=== PATIENT | female | born 1980 | race Caucasian/White ===

== ENCOUNTER 2024-07-30 01:40 | Day surgery (SDC) | payer OTHER, SELFPAY ==
[2024-07-25 08:08] VITALS: BMI 21.7
--- NOTE | 2024-07-25 08:14 | PC.NURSE ---
Report to the Outpatient Waiting Room, entrance under the green pavilion located off [facility], at time _0700_ on date _[id number]_. Planned Procedure Time: _0900_.? Time changes happen often and if your time is changed the preop area will call you the afternoon before. - You and your visitor will be asked to self-screen and do not enter if you have any COVID symptoms. Please call surgeon if you need to reschedule. - A mask is optional within the hospital at this time. Patients may have clear liquids (water, carbonated beverages, clear teas, apple juice) until 3 hours prior to surgery with a maximum of 20 ounces. - No food from midnight until time of surgery and no smoking Take only the following medications with a SIP of water on the morning of surgery: ___None___ DO NOT STOP ANY OF YOUR OTHER PRESCRIPTION MEDICATIONS PRIOR TO SURGERY EXCEPT THE FOLLOWING Medications to discontinue per physician __Magnesium____ Date to take last nijq__[id number]_ Please no make-up, nail albanian, hairspray, perfume, deodorant, or body powder the day of surgery.? No jewelry (including any body piercings) or valuables the day of surgery, leave them at home.? Please take a shower or bath the night before, or the morning of, surgery with an antibacterial soap.? Wear comfortable, loose fitting clothing.? - Jewelry must be removed prior to entering the operating room.? Rings and piercings that are not removed may be cut off. - The hospital will not accept responsibility for valuables.? - Please leave all valuables, including medications, at home the day of surgery. If you are going home after surgery, a licensed uke driver must drive you home.? - NO public transportation without another adult if you receive anesthesia. - We recommend that an adult stay with you for 24 hours following discharge. - We also recommend that you do not drive, make important decision, drink alcoholic beverages, or take any drugs that were not prescribed by your health care provider for at least 24 hours after your discharge time. Follow any additional instructions given to you from your surgeon. Telephone instructions given to ___Amy__and asked if any additional questions and then verbalized understanding. Patient advised to call surgeon office or pre surgery nurse liaison [phone] if any additional questions.
[2024-07-30] VITALS (8 sets, daily range): BP systolic 97–109; BP diastolic 44–67; PULSE 57–90; RESP 10–18; TEMP 36.4–36.9; O2SAT 99–100; BMI 21.3
[2024-07-30] MEDS: LACTATED RINGERS 1,000 ML 30 ML IV CONT (08:00)
[2024-07-30] MEDS: KETOROLAC 15 MG/ML VIAL (*BKC) IV PUSH (08:00)
[2024-07-30] MEDS: ACETAMINOPHEN 500 MG TABLET 1000 MG PO (08:00)
[2024-07-30 08:02] LABS: BEDSIDEPREGUCG Negative (Negative)
[2024-07-30 08:08] LABS: BEDSIDEPREGUCG Negative (Negative)
--- NOTE | 2024-07-30 08:15 | PM.IMHP ---
H&P: HPI History of Present Illness Date/Time: 07/30/24 08:15 Chief Complaint: Menorrhagia Narrative: 43-year-old female with severe menorrhagia. We have agreed to perform hysteroscopy D&C with endometrial ablation. The patient understands the details of the procedure. The procedure has been explained in detail. She understands the risks. She understands that injuries may occur that result in hospitalization, more surgery, and severe illness. She understands risk of hemorrhage and infection. She denies any chest pain or shortness of breath. She denies any nausea, vomiting, fever, chills. Review of Systems Review of Systems: All systems reviewed & are unremarkable except as noted in HPI and below Constitutional: Constitutional: Denies chills, Denies fatigue, Denies fever(s) and Denies weakness Eyes: Eyes: Denies blurry vision, Denies change in vision, Denies loss of peripheral vision, Denies loss of vision, Denies other visual disturbances and Denies eye pain ENT: Denies vertigo, Denies dizziness, Denies hearing loss, Denies mouth pain, Denies nasal obstruction, Denies neck mass and Denies neck pain Cardiovascular: Cardiovascular: Denies chest pain, Denies diaphoresis, Denies syncope, Denies leg edema and Denies dyspnea Respiratory: Respiratory: Denies chest congestion, Denies cough, Denies hemoptysis, Denies dyspnea and Denies wheezing Gastrointestinal: Gastrointestinal: Denies abdominal pain, Denies constipation, Denies diarrhea, Denies nausea and Denies vomiting Genitourinary: Genitourinary: Denies hematuria, Denies change in libido, Denies nocturia, Denies genital lesions, Denies flank pain and Denies urinary urgency Musculoskeletal: Musculoskeletal: Denies abnormal gait, Denies back pain, Denies myalgias, Denies arthralgias, Denies joint swelling, Denies muscle weakness and Denies neck pain Integumentary/Breasts: Skin/Breast: Denies swelling, Denies breast pain, Denies breast mass, Denies dry skin, Denies nipple discharge, Denies unusual bruising and Denies jaundice Neurologic: Denies Neuro-related abnormal movements, Denies Abnormal speech present, Denies abnormal gait, Denies behavioral changes, Denies confusion, Denies vertigo, Denies dizziness, Denies syncope, Denies loss of vision, Denies memory loss, Denies convulsions and Denies weakness Psychiatric: Psychiatric: Denies abnormal sleep pattern, Denies behavioral changes, Denies change in libido, Denies confusion, Denies depression, Denies anhedonia and Denies memory loss Endocrine: Endocrine: Reports no additional endocrine complaints, Denies change in libido and Denies fatigue Hematologic/Lymphatic: Hematologic/Lymphatic: Reports no additional hematologic/lymphatic complaints Allergic/Immunologic: Allergic/Immunologic: Reports no additional allergic/immunologic complaints and Denies wheezing PMFSH Social History Social History Smoking status: Never smoker Alcohol intake: current Drinks per week: 3 Living arrangements: with family Spiritual care concerns: No Meds Home Medications and Allergies Home Medications Medication Instructions Recorded Confirmed Type magnesium 200 mg tablet 400 mg PO DAILY 07/25/24 07/25/24 History spironolactone 100 mg tablet 100 mg PO DAILY 07/25/24 07/25/24 History Allergies Allergy/AdvReac Type Severity Reaction Status Date / Time No Known Allergies Allergy Unverified 07/25/24 08:06 Vital Signs Vital Signs - 24 hr 07/30/24 07:50 Temperature 98.5 F Pulse Rate 68 Blood Pressure 109/59 L Pulse Oximetry 100 Oxygen Delivery Room Air Exam Const: General: cooperative, healthy appearing, comfortable and no acute distress Orientation/consciousness: oriented to person, oriented to place and oriented to time HENMT: Head: normal to inspection Ears: external ears normal Face/Nose/Sinus: Normal external nose present and normal facial exam Face and sinus: normal facial exam Eyes: General: appearance normal, both eyes and all related structures Neck: Neck: normal visual inspection, trachea midline and supple Resp: Auscultation: clear to auscultation bilaterally, no crackles, no rales, no rhonchi and no wheezes Cardio: Rate: regular rate Rhythm: regular rhythm Heart sounds: no click, no murmurs and no rubs GI: GI Palp: No abdominal tenderness, No Soft to palpation, No Tenderness to palpation present (GI) and No Palpable mass present Auscultation: normal bowel sounds Skin: General skin exam: normal color and no rashes or lesions noted Neuro: General: oriented to person, oriented to place and oriented to time Extrem: General: normal to inspection, no joint enlargement, no clubbing, cyanosis or edema, no pedal edema and no calf tenderness Psych: Appearance: grossly normal Mental Status: mental status grossly normal Speech and movement: Normal speech and movement present Assessment and Plan Assessment and plan (1) Menorrhagia: Code(s): N92.0 - Excessive and frequent menstruation with regular cycle Status: Acute Assessment and Plan: 43-year-old female with severe menorrhagia. We have agreed to perform hysteroscopy D&C with endometrial ablation. she understands the risks, benefits, and alternatives. She has completed informed consent process and is ready to proceed.
--- NOTE | 2024-07-30 08:17 | WPDHPUPDATE1 ---
History and Physical Update Update Date/Time: 07/30/24 08:17 History and Physical has been reviewed, including an updated exam of the patient. There are NO changes in the patient's condition. Risks, benefits, and alternatives have been discussed and questions answered. Patient agrees to proceed with procedure.
--- NOTE | 2024-07-30 08:21 | WPDANESEPPF ---
Anes - Initial Pre Proc Eval Procedure: Operation Date: 07/30/24 09:00 Proposed Procedures p Hysteroscopy with Lia Endometrial Ablation, - Nate Johns MD s Laparoscopic Bilateral Salpingectomy - Nate Johns MD Date/Time: 07/30/24 08:21 Surgeon: Nate Johns MD Pre Op Diagnosis: menorrhagia Pre Op Diagnosis: menorrhagia Patient Data Age: 43 Gender: F Height: 1.55 m Weight: 51.2 kg Last Vital Signs Temp 36.9 C 07/30/24 07:50 Pulse 68 07/30/24 07:50 BP 109/59 L 07/30/24 07:50 Pulse Ox 100 07/30/24 07:50 O2 Del Method Room Air 07/30/24 07:50 Allergies Allergy/AdvReac Type Severity Reaction Status Date / Time No Known Allergies Allergy Unverified 07/25/24 08:06 Home Medications Medication Instructions Recorded Confirmed Type magnesium 200 mg tablet 400 mg PO DAILY 07/25/24 07/25/24 History spironolactone 100 mg tablet 100 mg PO DAILY 07/25/24 07/25/24 History Laboratory Tests 07/30/24 07/30/24 07:50 08:02 POC Urine HCG, Qual Negative Negative (Negative) (Negative) : patient denies HCG: negative Patient hx anesthesia problems: none Family hx anesthesia problems: none Results Review: All pre-operative results and documents have been reviewed as part of the pre-operative evaluation. FORMERLY [facility] Social History Social History Smoking status: Never smoker Alcohol intake: current Drinks per week: 3 Living arrangements: with family Spiritual care concerns: No Comments h/o hernia repair with PONV, h/o breast augmentation Anes - Eval Final PreProcedure Day of Procedure 07/30/24 08:21 Patient weight: thin Heart: regular rate and rhythm Lungs: clear to auscultation Airway: Mallampati scale class II Neurological: alert and oriented Last oral intake: >/= 8 hours ASA classification: I Emergent: no Anesthetic plan: proceed Anesthesia type and monitoring: general ETT and standard monitoring Results Review: All pre-operative results and documents have been reviewed as part of the pre-operative evaluation. Informed Consent: The patient's anesthetic plan and its attendant risks and benefits were discussed with the patient/family/POA. Questions were solicited and answers provided to the satisfaction of the patient/family/POA.
[2024-07-30] MEDS: SCOPOLAMINE 1 MG PATCH 1 PATCH TRANSDERM (08:33)
--- NOTE | 2024-07-30 09:22 | W.PM.PROC2 ---
Procedure Note - Detailed Date of Procedure 07/30/24 Pre-op Diagnosis menorrhagia Post-op Diagnosis Same Procedure Performed endometrial ablation with hysteroscopy d&c Surgeon Nate Johns MD Anesthesia MAC Indications Severe menorrhagia Findings Normal vulva vagina and cervix. Normal endometrium. Description of Procedure The patient was taken to the operating room. She was prepped and draped in the dorsal lithotomy position after induction of mac anesthesia. A speculum was placed in the vagina. Cervix grasped with a tenaculum. The cervix was dilated to about 1 cm. The hysteroscope was inserted. The above findings were noted. Endometrial curettage was performed with a medium-size curette. All surfaces of the endometrium were affected by the curettage. The specimens were collected and sent to pathology. Measurements were taken of the uterus and cervix. The uterine length was then entered into the hand piece of the Lia device. The device was inserted into the intrauterine cavity. The array of the device was expanded. The balloon cuff was inflated. A good seal was achieved. The energy and safety cycles were initiated and completed. The array was collapsed and the instrument was withdrawn after deflating the balloon cuff. Hysteroscope was reinserted. Above findings were noted. The hysteroscope was removed. The patient tolerated the procedure well. The speculum and tenaculum were removed. She was taken to recovery in stable condition. Sponge lap and needle counts were correct x2. Estimated Blood Loss 15 Pathology Yes Complications No immediate complications Condition Stable Disposition Same day
[2024-07-30] MEDS: ONDANSETRON INJ 4 MG/2 ML VIAL IV PUSH (10:58)
== END 2024-07-30 11:45 | disposition home or self-care (01) ==
PROVIDERS: PCP Family Medicine; Visit Provider Obstetrics & Gynecology
PROC: 0U5B8ZZ Destruction of Endometrium, Via Natural or Artificial Opening Endoscopic (ICD-10-PCS; CPT 58563; principal; 2024-07-30 09:00)
PROC: (CPT 49320; 2024-07-30 09:00)
DX: N83.8 Other noninflammatory disorders of ovary, fallopian tube and broad ligament (principal); G89.18 Other acute postprocedural pain
CPT/HCPCS: 58563; 88302; A9270; J1100; J1171; J1885; J2003; J2250; J2405; J2704; J7120

== ENCOUNTER 2025-08-04 00:35 | Day surgery (SDC) | payer OTHER, SELFPAY ==
[2025-07-23 10:46] VITALS: BMI 22.1
[2025-08-04 07:21] VITALS: BP 123/70; PULSE 96; RESP 18; TEMP 36.1; O2SAT 100
[2025-08-04] MEDS: LACTATED RINGERS 1,000 ML 150 ML IV CONT (07:32)
[2025-08-04] MEDS: ONDANSETRON INJ 4 MG/2 ML VIAL IV PUSH (08:13)
--- NOTE | 2025-08-04 08:37 | PM.IMHP ---
H&P: HPI History of Present Illness Date/Time: 08/04/25 08:37 Chief Complaint: screening for colorectal cancer Narrative: this is a 44-year-old woman who presents for her 1st colonoscopy. She denies any hematochezia or melena. She denies any family history of colon cancer. Review of Systems Review of Systems: All systems reviewed & are unremarkable except as noted in HPI and below Constitutional: Constitutional: Denies chills, Denies fever(s), Denies headache(s) and Denies weight loss Eyes: Eyes: Denies change in vision ENT: Denies dizziness, Denies headache(s), Denies neck mass and Denies throat swelling Cardiovascular: Cardiovascular: Denies chest pain, Denies lightheadedness and Denies dyspnea Respiratory: Respiratory: Denies cough, Denies dyspnea and Denies wheezing Gastrointestinal: Gastrointestinal: Denies abdominal pain, Denies change in bowel habits, Denies nausea and Denies vomiting Genitourinary: Genitourinary: Denies hematuria and Denies dysuria Musculoskeletal: Musculoskeletal: Reports as per HPI Integumentary/Breasts: Skin/Breast: Reports as per HPI Neurologic: Denies dizziness and Denies headache(s) Allergic/Immunologic: Allergic/Immunologic: Denies throat swelling and Denies wheezing FORMERLY [facility], [facility] Social History Social History Smoking status: Never smoker Alcohol intake: never Drinks per week: 3 Substance use: never Substance use type: does not use Living arrangements: with family Spiritual care concerns: No Meds Home Medications and Allergies Home Medications ?Medication ?Instructions ?Recorded ?Confirmed ?Type magnesium 200 mg tablet 400 mg PO DAILY 07/25/24 08/04/25 History spironolactone 100 mg tablet 100 mg PO DAILY 07/25/24 08/04/25 History oxycodone-acetaminophen 5 mg-325 1 tablet PO Q4H PRN pain #10 tabs 07/30/24 07/23/25 Rx mg tablet Allergies Allergy/AdvReac Type Severity Reaction Status Date / Time No Known Allergies Allergy Verified 08/04/25 07:18 Vital Signs Vital Signs - 24 hr 08/04/25 07:21 Temperature 97 F L Pulse Rate 96 Respiratory Rate 18 Blood Pressure 123/70 Pulse Oximetry 100 Oxygen Delivery Room Air Exam Const: General: no acute distress and alert Orientation/consciousness: patient oriented x3 HENMT: Head: normocephalic and atraumatic Ears: hearing grossly normal bilaterally Face/Nose/Sinus: Normal nares present Mouth: Yes Normal oral and palatal mucosa present Eyes: Periorbital: periorbital findings normal Sclera: sclerae normal EOM: EOMs intact bilaterally Neck: Neck: normal visual inspection, no lymphadenopathy and trachea midline Chest: Chest palpation & inspection: normal inspection of the chest Resp: Effort & Inspection: normal respiratory effort Auscultation: clear to auscultation bilaterally Cardio: Jugular venous distension: no JVD Rate: regular rate Rhythm: regular rhythm Heart sounds: S1 normal heart sound present and S2 normal heart sound present Peripheral pulses: Peripheral pulses 2+ throughout GI: Inspection: normal to inspection GI Palp: Yes Soft to palpation, No Tenderness to palpation present (GI), No Guarding due to palpation present (GI) and No Rebound tenderness present Percussion: Yes normal to percussion Auscultation: normal bowel sounds : General: Yes no CVA tenderness Back/Spine/Pelvis: Back: no CVA tenderness Neuro: General: patient oriented x3, no focal motor deficits and CN's II-XI intact bilaterally Cognition (Neuro): normal cognition Speech: normal speech Motor exam (neuro): 5/5 motor strength present throughout Extrem: General: capillary refill normal and no clubbing, cyanosis or edema Assessment and Plan Assessment and plan (1) Screening for colorectal cancer: Code(s): Z12.11 - Encounter for screening for malignant neoplasm of colon; Z12.12 - Encounter for screening for malignant neoplasm of rectum Status: Acute Assessment and Plan: I have recommended colonoscopy. I have discussed the procedure, risks, benefits, and alternatives. Questions were answered. Patient is agreeable to proceed.
--- NOTE | 2025-08-04 08:50 | WPDANESEPPF ---
Anes - Initial Pre Proc Eval Procedure: Operation Date: 08/04/25 08:30 Proposed Procedures p Screening Colonoscopy - Adebayo Encarnacion DO Date/Time: 08/04/25 08:50 Surgeon: Adebayo Encarnacion DO Pre Op Diagnosis: Neoplasm screening Patient Data Age: 44 Gender: F Height: 1.55 m Weight: 52 kg Last Vital Signs Temp 36.1 C L 08/04/25 07:21 Pulse 96 08/04/25 07:21 Resp 18 08/04/25 07:21 BP 123/70 08/04/25 07:21 Pulse Ox 100 08/04/25 07:21 O2 Del Method Room Air 08/04/25 07:21 Allergies Allergy/AdvReac Type Severity Reaction Status Date / Time No Known Allergies Allergy Verified 08/04/25 07:18 Home Medications ?Medication ?Instructions ?Recorded ?Confirmed ?Type magnesium 200 mg tablet 400 mg PO DAILY 07/25/24 08/04/25 History spironolactone 100 mg tablet 100 mg PO DAILY 07/25/24 08/04/25 History oxycodone-acetaminophen 5 mg-325 1 tablet PO Q4H PRN pain #10 tabs 07/30/24 07/23/25 Rx mg tablet Patient hx anesthesia problems: none Family hx anesthesia problems: none Results Review: All pre-operative results and documents have been reviewed as part of the pre-operative evaluation. FORMERLY [facility] Past Medical History Medical History (Updated 08/04/25 @ 08:50 by Tadeo Ybarra DO) Anemia Social History Social History Smoking status: Never smoker Alcohol intake: never Drinks per week: 3 Substance use: never Substance use type: does not use Living arrangements: with family Spiritual care concerns: No Anes - Eval Final PreProcedure Day of Procedure 08/04/25 08:50 Patient weight: normal Heart: regular rate and rhythm Lungs: clear to auscultation and normal air movement Airway: Mallampati scale class II Neurological: alert and oriented Last oral intake: >/= 8 hours ASA classification: II Emergent: no Anesthetic plan: proceed Anesthesia type and monitoring: general GIVS and standard monitoring Results Review: All pre-operative results and documents have been reviewed as part of the pre-operative evaluation. Informed Consent: The patient's anesthetic plan and its attendant risks and benefits were discussed with the patient/family/POA. Questions were solicited and answers provided to the satisfaction of the patient/family/POA.
[2025-08-04 09:08] VITALS: BP 108/60; PULSE 91; RESP 20; O2SAT 100
[2025-08-04 09:18] VITALS: BP 98/62; PULSE 94; RESP 27; O2SAT 100
[2025-08-04 09:28] VITALS: BP 112/65; PULSE 87; RESP 19; O2SAT 100
--- NOTE | 2025-08-04 12:10 | SUR.PHASEII ---
Received a phone call from patients around 1200. stating that patient was complaining of abdominal pain. I spoke with Jaci in Dr. Encarnacion's office who was going to relay the message to Dr. Encarnacion and return phone call to patient. Relayed this information to patients that Dr. Encarnacion/office would be in touch with them with doctor recommendations. I also instructed patient and family that if abdominal pain worsens, to go to the Emergency Department. verbalized understanding. We will check in on patient tomorrow.
== END 2025-08-04 09:43 | disposition home or self-care (01) ==
PROVIDERS: PCP Family Medicine; Visit Provider Surgery
PROC: 0DJD8ZZ Inspection of Lower Intestinal Tract, Via Natural or Artificial Opening Endoscopic (ICD-10-PCS; CPT 45378; principal; 2025-08-04 08:30)
DX: Z12.11 Encounter for screening for malignant neoplasm of colon (principal)
CPT/HCPCS: 45378; 36415; 74177; 80048; 80053; 81001; 83605; 85025; 85027; 88304; 96374; 96375; 96376; 99285; A9270; G0378; J1100; J1171; J1200; J1650; J1741; J2003; J2250; J2270; J2405; J2543; J2704; J3010; J7030; J7120; Q9967

== ENCOUNTER 2025-08-04 15:39 | Observation (INO) | payer OTHER, SELFPAY ==
--- NOTE | ~2025-08-04 | CT_ITS ---
CT abdomen pelvis w con INDICATION:colonoscopy this am, lower abd pain . COMPARISON: None. TECHNIQUE: Axial images of the abdomen and pelvis were obtained following infusion of 100 mL Isovue 300. Dose optimization technique was utilized. FINDINGS: The lung bases are clear. The liver parenchyma is unremarkable. No intrahepatic mass or ductal dilatation is evident. The gallbladder is unremarkable. The pancreas and spleen are normal in appearance. The adrenal glands are symmetric in size. The kidneys demonstrate symmetric uptake and excretion of contrast. No cystic mass is evident. There is no solid mass. There is no hydronephrosis. The stomach and bowel loops are unremarkable. There are appendicolith and gas within the appendix. The bladder and rectum are normal. No free intraperitoneal fluid or air is evident. There is no significant retroperitoneal lymphadenopathy. The aorta, visceral vessels and renal arteries demonstrate normal caliber and patency. The lower thoracic and lumbar vertebrae are in normal alignment. IMPRESSION: No acute abnormality is noted in the abdomen and pelvis. All CT scans at this facility are performed using low dose modulation techniques as appropriate to perform exam including the following: automated exposure control; use of iterative reconstruction technique; adjustment of the mA and/or kV according to patient size (this includes techniques or standardized protocols for targeted exams where dose is matched to indication/reason for exam). Reviewed, dictated and finalized at location S. OR OCCUPATIONAL THERAPIST IMPRESSION: No acute abnormality is noted in the abdomen and pelvis. All CT scans at this facility are performed using low dose modulation techniqu es as appropriate to perform exam including the following: automated exposure c ontrol; use of iterative reconstruction technique; adjustment of the mA and/or kV according to patient size (this includes techniques or standardized protocol s for targeted exams where dose is matched to indication/reason for exam).
--- NOTE | ~2025-08-04 | CT_ITS ---
EXAMINATION: CT abdomen pelvis w con DATE: 08/06/2025 09:59 INDICATION: Low abdominal pain after colonoscopy. TECHNIQUE: Computed tomography (CT) of the abdomen and pelvis was performed with 100 mL Omnipaque 350 intravenous contrast. Automated exposure control and iterative reconstruction technique were employed. The dose-length product was 200.71 mGy-cm. COMPARISON: CT abdomen and pelvis 08/04/2025 FINDINGS: The visualized portions of the lung bases demonstrate mild atelectasis. There are trace pleural effusions. The heart size is normal. No pericardial effusion. There are bilateral breast implants. The liver demonstrates periportal edema. The spleen is normal. There is contrast in the gallbladder, which is normal in size. The pancreas, adrenal glands, and kidneys are normal. There are appendicoliths in the appendix which is dilated to 10 mm. There are no pathologically enlarged lymph nodes. There is a small volume of ascites. The left periuterine and ovarian veins are enlarged, consistent with pelvic venous insufficiency. There is mild thoracic spondylosis. IMPRESSION: 1. Appendicoliths and worsened dilatation of the appendix, consistent with appendicitis. 2. Worsened small volume of ascites. Reviewed, dictated and finalized at location A. SMITTER ENGINEER IMPRESSION: 1. Appendicoliths and worsened dilatation of the appendix, consistent with appe ndicitis. 2. Worsened small volume of ascites.
[2025-08-04 15:43] VITALS: BP 129/70; PULSE 96; RESP 18; TEMP 36.8; O2SAT 100
--- OUTSIDE RECORDS SUMMARY | 2025-08-04 15:55 | XMS_ITS | Encounter Summary ---
Author Organization [facility] Address [address] [place] [address] Care Team Providers Care Radio Television Announcer Name Role Phone Sanket Cooney MD Primary Care Provider [phone] Encounter Details Date Type Department Care Team (Late st Contact Info) Description 07/04/2018 Lab Requisition [facility] Care [facility] Lab [address] [place] [address] Gisela Reddy MD [address] [facility] [address] [place] [address] Social History Tobacco Use Types Packs/Day Years Used Date Smoking Tobacco: Never Assessed Comments Unknown Sex and Gender Information Value Date Recorded Sex Assigned at Not on file Legal Sex Female 3:06 PM CDT Gender Identity Not on file Sexual Orientation Not on file documented as of this encounter Plan of Treatment Not on file documented as of this encounter Procedures Procedure Name Priority Date/Time Associated Diagnosis Comments DERMATOPATH TECHNICAL REPORT Routine 07/02/2018 12:00 AM CDT documented in this encounter Results * DERMATOPATH TECHNICAL REPORT (07/02/2018 12:00 AM CDT) Case Report Dermatopathology Report Case: [id number] Authorizing Provider: Gisela Reddy MD Collected: 07/02/2018 12:00 AM Pathologist: Geeta Tapia MD Received: 07/04/2018 06:20 AM Specimen: Skin, right third digit 8 9:15 AM CDT DERMATOPATHOLOGY LABORATORY Clinical History VV vs cyst vs other. Non-healing. 8 9:15 AM CDT DERMATOPATHOLOGY LABORATORY Gross Description Specimen A: Received is one formalin filled container labeled with the patient's name and designated right third digit. The specimen consists of a shave measuring [id number]. Jar 0. [facility] Dermatopathology Laboratory performed the technical component only. 9:15 AM CDT DERMATOPATHOLOGY LABORATORY Embedded Images 9:15 AM CDT DERMATOPATHOLOGY LABORATORY DISCLAIMER An external and internal positive and negative controls are appropriate for the histochemical, immunohistochemical and immunofluorescence stain(s) in this case (if any), except where stated explicitly. The performance characteristics of the stain(s) cited in this report were developed and its performance characteristic determined by the Dermatopathology Laboratory at [facility]. These tests need not be, and therefore are not, approved by the [place] Food and Drug Administration. The tests are used for clinical purposes. 9:15 AM CDT DERMATOPATHOLOGY LABORATORY at 0915 CDT Pathology/Cytolog y TISSUE SPECIMEN FROM SKIN / Unknown 07/02/2018 07/04/2018 6:20 AM CDT Gisela Reddy MD LAB - PATHOLOGY/CYTOLOGY OR DERABLES Final Result DERMATOPATHOLOGY LABORATORY [facility] - Department of Dermatology [address] [place] [address], 5th Floor Lab [address] [phone] documented in this encounter Visit Diagnoses Not on filedocumented in this encounter Care Teams Radio Television Announcer Relationship Specialty Start Date End Date Sanket Cooney MD [address] [place] [id number] PCP - General Family Medicine 02/15/19 documented as of this encounter
--- OUTSIDE RECORDS SUMMARY | 2025-08-04 15:55 | XMS_ITS | Clinical Summary ---
Author Organization [facility] Address [address] [place] [address] Care Team Providers Care Sales Enablement Lead Name Role Phone Sanket Cooney MD Primary Care Provider [phone] Allergies No known active allergies Medications cyanocobalamin (Vitamin B-12) 2,000 mcg tablet Take 1 tablet (2,000 mcg total) by mouth nightly Active levonorgestreL (MIRENA) IUD 1 each by intrauterine route as directed Active valACYclovir (VALTREX) 500 mg tablet Take 1 tablet by mouth once daily 90 tablet 3 Active Additional Information Patient taking differently: 500 mg oral Nightly, Indications: Chronic Suppression, Informant: Self, Reported on 08/29/2023 spironolactone (ALDACTONE) 100 mg tablet Take 1 tablet (100 mg total) by mouth nightly 3 Active magnesium citrate 100 mg tablet Take 100 mg by mouth daily as needed (constipation) Active acetaminophen-c affeine 500-65 mg tablet Take 1 tablet by mouth every 8 (eight) hours as needed (headache) Active oxyCODONE (ROXICODONE) 5 mg immediate release tabletIndicatio ns:Pain Take 1 tablet (5 mg total) by mouth every 4 (four) hours as needed for pain 5 tablet 3 Active Additional Information Patient not taking.Reported on 11/03/2023 acetaminophen (TYLENOL) 500 mg tablet Take 2 tablets (1,000 mg total) by mouth every 6 (six) hours as needed for pain If you are also taking your Tylenol-caffeine medication for headache, please reduce the separate Tylenol you take. Maximum Tylenol dosing is 4000 mg in a 24hr period. 60 tablet Active Active Problems Problem Noted Date Diagnosed Date Postoperative state 11/03/2023 Mixed stress and urge urinary incontinence 08/17 Vaginal dryness 08/17/2023 Other constipation 08/17/2023 Pelvic floor dysfunction in female 08/17/2023 Breast lump in female 12/24/2020 Surgical History Surgery Date Site/Laterality Comments HERNIA REPAIR 10/02/2007 - 10/01/2008 AUGMENTATION MAMMOPLASTY 10/02/2019 - 10/01/2020 URETHRAL SLING 09/27/2023 mid urethral sling CYSTOSCOPY 09/27/2023 Medical History Medical History Date Comments Depression Headache PONV (postoperative nausea and vomiting) Family History Medical History Relation Name Comments Pancreatic cancer Maternal Grandmother Breast cancer Mother's Sister maternal gr eat aunt Skin cancer Paternal Grandfather Anesthesia problems Neg Hx Relation Name Status Comments Maternal Grandmother Mother's Sister Paternal Grandfather Social History Tobacco Use Types Packs/Day Years Used Date Smoking Tobacco: Never Smokeless Tobacco: Never Tobacco Cessation:Counseling Given: Not Answered Alcohol Use Standard Drinks/Week Comments Never 0 (1 standard drink = 0.6 oz pur e alcohol) AUDIT-C Answer Date Recorded Q1: How often do you have a drink containing alc ohol? 2-4 times a month 08/29/2023 Q2: How many drinks containi ng alcohol do you have on a typical day when you are drinking? 1 or 2 08/29/2023 Q3: How often do you have si x or more drinks on one occasion? Never 08/29/2023 Personal Safety Answer Date Recorded Have you ever been in or are you currently in a harmful physical or emotional relationship or is someone making you feel afraid or unsafe? Denies 09/27/2023 Comments No Sex and Gender Information Value Date Recorded Sex Assigned at Not on file Legal Sex Female 2:34 AM VALVE TESTER Gender Identity Not on file Sexual Orientation Not on file Obstetrics History Para Term AB IAB SAB Ectopic Multiple Livin g Live Births 3 2 2 1 1 2 2 Date Outcome GA Total Labor Labor/2nd/3rd Weight Sex Type Anes PTL Linda A1 A5 Name Clin Term Vaginal Living Term Vaginal Living SAB Demise Last Filed Vital Signs Vital Sign Reading Time Taken Comments Blood Pressure 116/75 11/03/2023 9:33 AM VALVE TESTER Pulse 87 09/27/2023 11:50 AM VALVE TESTER Temperature 36.3 C (97.3 F) 09/27/2023 11:30 AM VALVE TESTER Respiratory Rate 13 09/27/2023 11:50 AM VALVE TESTER Oxygen Saturation 98% 09/27/2023 11:50 AM VALVE TESTER Inhaled Oxygen Concentration - - Weight 54.4 kg (120 lb) 11/03/2023 9:33 AM VALVE TESTER Height 152.4 cm (5') 11/03/2023 9:33 AM VALVE TESTER Body Mass Index 23.44 11/03/2023 9:33 AM VALVE TESTER Plan of Treatment Health Maintenance Due Date Last Done Comments Cervical Cancer Screening 1979 Colon Cancer Screening-Colonoscopy 1979 Depression Screening 1979 Hepatitis C Screening 1979 DTaP/Tdap/Td Vaccine (1 - Tdap) 1990 Hepatitis B Screening 1997 Regular Well Visit/Exam 18-64 1997 HPV Vaccines (1 - 3-dose SCDM series) 2006 Influenza Vaccine (#1) 2025 07/05/2018 Breast Cancer Screening-Mammogram 04/22/2026 04/22/2025, 06/11/2024, 06/09/2023, Additional history exists Pneumococcal vaccine <65 Aged Out No longer eligible based on patient's age to complete this topic Medical Devices Implanted Type Area Auto Parts Manager Device Identifier Shelf Expiration Date Model / Serial / Lot Godigex Bryan System Sling Transvaginal Mid Urethral Advantage Fit [id number] - [id number] Implanted:Qty: 1 on 09/27/2023 by José Miguel Wallace MD at [facility] Mesh N/A: Urethra [employer] Bryan [id number] 06/26/2026 [id number] / / [id number] Procedures Procedure Name Priority Date/Time Associated Diagnosis Comments DIAGNOSTIC MAMMOGRAM BILATERAL W GURJIT W IMPLANTS Schedule Routine, Read Routine (OP Routine) 04/22/2025 7:44 AM CDT Mass of right breast, unspecified quadrant from Last 3 Months or Most Recently Relevant to Health Maintenance Results * Diagnostic Mammogram Bilateral W Gurjit W Implants (04/22/2025 7:44 AM CDT) Anatomical Region Laterality Modality Breast Bilateral Mammography 04/22/2025 9:31 AM CDT Impressions 04/22/2025 9:31 AM CDT No mammographic or sonographic evidence of malignancy OVERALL FINAL ASSESSMENT: BI-RADS CATEGORY 2: Benign RECOMMENDATIONS: Annual screening mammography. Findings and recommendations were communicated to the patient. Electronically signed by: Savana Land M.D. Narrative 04/22/2025 9:31 AM CDT EXAMINATION/TECHNIQUE: Bilateral digital diagnostic mammogram including cad and digital breast tomosynthesis. Ultrasound right breast. HISTORY: Lump right breast 12 o'clock position from 3 weeks. Status post bilateral breast augmentation in 2020. History of benign biopsy. COMPARISON: Mammograms dating back to 2019 FINDINGS: The breasts are extremely dense, which lowers the sensitivity of mammography. No suspicious masses, microcalcifications are architectural distortion visualized. Ultrasound right breast was done in the region of lump. Breast was evaluated at 12 o'clock position 4 to 5 cm from nipple. Dense fibroglandular breast tissue is visualized. Intersperse fibrocystic changes. No suspicious findings noted. Sandra Pantoja NP IMG MAMMO PROCEDURES Fi nal Result from Last 3 Months or Most Recently Relevant to Health [place] [address] [employer] OPEN ACCESS [employer] [place] [employer] OPEN ACCESS C[employer] OPEN ACCESS C[employer] OPEN ACCESS Care Teams Sales Enablement Lead Relationship Specialty Start Date End Date Sanket Cooney MD [address] [place] [id number] PCP - General Family Medicine 05/17/24
--- OUTSIDE RECORDS SUMMARY | 2025-08-04 15:55 | XMS_ITS | Clinical Summary ---
Author Organization [facility] Address [address] [place] [address] Phone Care Team Providers Care Revenue Integrity Analyst Name Role Phone Sanket Cooney MD Primary Care Provider [phone] Allergies No known active allergies Medications No known medications Social History Tobacco Use Types Packs/Day Years Used Date Smoking Tobacco: Never Smokeless Tobacco: Never Alcohol Use Standard Drinks/Week Comments Yes 0 (1 standard drink = 0.6 oz pur e alcohol) Comments No Sex and Gender Information Value Date Recorded Sex Assigned at Not on file Legal Sex Female 6:12 PM FUEL DOCK ATTENDANT Gender Identity Not on file Sexual Orientation Not on file Last Filed Vital Signs Vital Sign Reading Time Taken Comments Blood Pressure 124/76 08/25/2020 6:37 PM FUEL DOCK ATTENDANT Pulse 84 08/25/2020 6:37 PM FUEL DOCK ATTENDANT Temperature 37.4 C (99.3 F) 08/25/2020 6:37 PM FUEL DOCK ATTENDANT Respiratory Rate - - Oxygen Saturation 98% 08/25/2020 6:37 PM FUEL DOCK ATTENDANT Inhaled Oxygen Concentration - - Weight 53.1 kg (117 lb) 08/25/2020 6:37 PM FUEL DOCK ATTENDANT Height - - Body Mass Index - - Plan of Treatment Health Maintenance Due Date Last Done Comments Hepatitis C Virus (HCV) Screening 1979 TdaP Immunization 1979 Hepatitis B Immunization (1 of 3 - 19+ 3-dose series) 1998 Pap Smear 2000 Human Papillomavirus (HPV) Immunization (1 - 3-dose SCDM series) 2006 Cervical Cancer Screening (CCS) 2009 HPV/Cotest 2009 Cologuard 2024 Colonoscopy 2024 Colorectal Cancer Screening 2024 Immunochemical Fecal Occult Blood 2024 Influenza Immunization (#1) 2025 07/05/2018 SARS-COV-2 Immunization ( season) 2025 09/15/2021, 01/17/2021, 12/29/2020 Respiratory Syncytial Virus (RSV) Immunization (Adult) (1 - 1-dose 75+ series) 2054 Meningococcal Immunization (ACWY) Aged Out No longer eligible b ased on patient's age to complete this topic Pneumococcal Immunization Combined Aged Out No longer eligible b ased on patient's age to complete this topic Rotavirus Immunization Aged Out No lo nger eligible based on patient's age to complete this topic Care Teams Revenue Integrity Analyst Relationship Specialty Start Date End Date Sanket Cooney MD [address] [place] [address] PCP - General Handbag Stitcher 08/25/20
--- OUTSIDE RECORDS SUMMARY | 2025-08-04 15:55 | XMS_ITS | Clinical Summary ---
Author Organization [facility] Address [address] [place] [address] Care Team Providers Care Prospecting Driller Helper Name Role Phone Sanket Cooney MD Primary Care Provider [phone] Source Comments [facility],non-owned Affiliates and Associated Physician Practices is amultiple site organization consisting of ambulatory clinics and hospital sitesin [place], [place], [place] and [place]. This disclosure is being madepursuant to the Care Everywhere program and may not contain all information available regarding this patient. Last updated 18.Reviews42 [facility] Allergies No known active allergies Medications * Be aware that medications may not be up to date on this document. Alwaysverify current medications with the patient. levonorgestrel (MIRENA, 52 MG,) 20 MCG/24HR IUD 1 device by Intrauterine route as directed Active Social History Tobacco Use Types Packs/Day Years Used Date Smoking Tobacco: Never Smokeless Tobacco: Never Comments No Sex and Gender Information Value Date Recorded Sex Assigned at Not on file Legal Sex Female 3:06 PM CDT Gender Identity Not on file Sexual Orientation Not on file Last Filed Vital Signs Vital Sign Reading Time Taken Comments Blood Pressure 122/72 02/15/2019 9:08 AM CDT Pulse 68 02/15/2019 9:08 AM CDT Temperature 37.1 C (98.8 F) 02/15/2019 9:08 AM CDT Respiratory Rate 15 02/15/2019 9:08 AM CDT Oxygen Saturation 99% 02/15/2019 9:08 AM CDT Inhaled Oxygen Concentration - - Weight 54.4 kg (120 lb) 02/15/2019 9:08 AM CDT Height 154.9 cm (5' 1) 02/15/2019 9:08 AM CDT Body Mass Index 22.67 02/15/2019 9:08 AM CDT Plan of Treatment Health Maintenance Due Date Last Done Comments COLLONUARD (AGES 45-75) - COL ON CA SCREENING 1979 COLON MONITORING 1979 COLONOSCOPY - COLON CA SCREENING 1979 CT COLONOGRAPHY - COLON CA SCREENING 1979 Colorectal Cancer Screening 1979 FIT - COLON CA SCREENING 1979 FLEX SIG - COLON CA SCREENING 1979 LIPID TESTING 1979 MAMMOGRAM 1979 HIV SCREENING 1994 HEPATITIS C SCREENING 08/01/1997 DTAP/TDAP/TD VACCINES (1 - Tdap) 1998 HEPATITIS B VACCINE (1 of 3 - 19+ 3-dose series) 1998 PAP SMEAR 2000 HPV VACCINE (1 - 3-dose SCDM series) 2006 DEPRESSION SCREENING 10/02/2024 COVID-19 VACCINE (1 - 2023-2 5 season) 2025 INFLUENZA VACCINE (#1) 2025 ZOSTER VACCINE (1 of 2) 2029 HIB VACCINE Aged Out No longer eligi ble based on patient's age to complete this topic MENINGOCOCCAL (Group B) VACC INE SHARED DECISION-MAKING Aged Out No longer eligibl e based on patient's age to complete this topic MENINGOCOCCAL GROUPS A/C/Y/W VACCINE Aged Out No longer eligible b ased on patient's age to complete this topic PNEUMOCOCCAL VACCINE Aged Out No long er eligible based on patient's age to complete this topic Insurance ANTHEM ANTHEM SELF PAY NO INSURANCE Member Subscriber Plan / Payer (Ef fective for All Dates) Name:Radha Tolentino Member ID:Not on file Relation to Subscriber:Not on file Name:RADHA TOLENTINO Subscriber ID:Not on file (Home) Address: [address] [place] [id number] Payer ID:Not on file Group ID:Not on file Type:Self Pay Address: [facility] Care Teams Prospecting Driller Helper Relationship Specialty Start Date End Date Sanket Cooney MD [facility] [place] [address] PCP - General Family Medicine 02/15/19
--- OUTSIDE RECORDS SUMMARY | 2025-08-04 15:55 | XMS_ITS | Data Portability ---
Author Organization [facility] Address [address] [place] [address] Care Team Providers Care Fire Code Inspector Name Role Phone JASMYNE CABALLERO Primary Care Provider Assessment Encounter Date Assessment Date Assessment LastModified by Organization Details LastModified Time 03/06/2024 03/06/2024 Annual gynecological exam performed. Patient will come back in a year unless there are new symptoms. [email or web address] Not available 03/06/2024 11:00:15 04/03/2025 04/03/2025 Annual gynecological exam performed. Patient will come back in a year unless there are new symptoms. [email or web address] Not available 04/03/2025 09:59:37 Plan of Treatment Reminders Order Date Submit Date Provider Last Modified By Organization Details Last Modified Time Details Appointments None recorded. Lab pap, IG + HR HPV - HPV regardless but if HPV is positive need subtyping 16,18/45 2024 025 [facility] (Lab), [address], [place], [address], 5 11:55:22 Referral gastroenter ologist referral [address] - Gastroenterol apurvay, [address] [facility] [address], [facility] [address], [place], [address], 5 11:52:51 Procedures None recorded. Surgeries salpingecto my, laparoscopi c (SURG) 2023 024 [facility], [address] [facility] [address], [place], [address], 4 21:21:35 hysteroscop y, with endometrial ablation (SURG) 2023 024 [email or web address] Nate Johns MD, [address], [place], [address], 5 16:19:09 Imaging MAMMO, diagnostic, digital, bilateral 2024 025 [facility], [address] [place], [address], 5 10:35:37 US, breast, unilateral - Right breast lump, bilateral fibrocystic breast changes 2024 025 [facility], [address] [place], [address], 5 10:35:37 US, pelvis 2023 024 [email or web address] 4 [facility], [address], [address], [place], [address], 4 12:10:28 US, transvagina l 2023 024 [email or web address] [address], [address], [place], [address], 4 12:10:28 MAMMO, screening, digital, bilateral 2023 024 [facility], [address], [place] [place] [address], [place], [address], 4 05:01:48 Medication Orders clotrimazol e-betametha sone 1 %-0.05 % topical cream 2023 025 [id number], [address], [place], [id number], 5 10:00:17 Valtrex 1 gram tablet 2023 024 [id number], [address], [place], [place], [id number], 4 16:11:37 Patient TargetsNo targets recorded. Patient InstructionsNo instructions recorded. Reason for Referral Hospital Monitor Referral for Screening for malignant neoplasm of colon Referring Physician: Sandra Pantoja, SALES PROJECT MANAGER, Encounter Date: 04/03/2025 Results Created Date Observation Date Name Description Value Unit Range Abnormal Flag Note LastModifiedBy Organization Detail LastModifiedTime 03/06/20 24 03/06/2024 IMAGE GUIDE D PAP AND HPV REGAR DLESS image guided Pap, HPV regardless of Pap result SEE RESULT S BELOW CASE REPOR T: Cytol ogy Gynec ologi jeannie Repor t Case: [id number] Autho mateo jackson Provi solo: Sandra Pantoja, KD Colle cted: 03/06 1221 Order ing Locat ion: [place] Path[facility] Recei dhiraj: 03/07 0117 First Scree n: Leah Gotti een: Saroj Wade ed, CT Speci men: Shengmaite crawford Pap - Image d, Cervi x STATE MENT OF ADEQU ACY: Satis facto ry for evalu ation Trans forma tion zone compo nent prese nt ----- ----- ----- ----- ----- ----- ----- ----- ----- ----- ----- ----- ----- ----- ----- ----- ----- ---- FINAL DIAGN OSIS: Negat dinesh for Intra epith elial Mike hanks or Anaya garvey (NIL) . Elect marcus sinha d by Saroj Wade ed, CT on 024 at 7:39 PM ----- ----- ----- ----- ----- ----- ----- ----- ----- ----- ----- ----- ----- ----- ----- ----- ----- ---- HPV RESUL TS: HPV mRNA E6/E7 : No HPV mRNA Detec flex NOTE: This high risk HPV mRNA assay detec ts fourt een high- risk HPV types (16, 18, 31, 33, 35, 39, 45, 51, 52, 56, 58, 59, 66, 68) witho ut diffe renti ation . COMME NT: This speci men was revie wed by a Cytot echno logis t and/o r Patho logis t (as indic ated in this repor t) after evalu ation using the Thinp rep Imagi ng Syste m. CLINI JEANNIE INFOR MATIO N: Menst rual Statu s: LMP (if appli cable ): Clini jeannie Histo ry/Pr eviou s Pap: Type of Neopl carolina (if appli cable ): Signi fican t Clini jeannie Findi ngs: Other Histo ry: Hormo marcie (if appli cable ): PAP EDUCA KAYLAH L NOTE: The Pap Test is a scree ty test with an inher ent false negat dinesh rate. Liqui d-bas ed sampl ing may decre ase, but will not elimi marlene, false negat dinesh resul ts. A negat dinesh resul t does not precl ude the prese nce and/o r devel opmen t of disea se, since the prese nce of abnor mal cells in the sampl e depen ds on the locat ion of the lesio n and sampl ing techn ique. Shakila nued regul ar scree ty is the best metho d of cance r preve ntion . If repor flex cytol ogic findi ng do not corre late with physi jeannie and/o r histo rical findi ngs, furth er inves tigat ion is recom trixie d, as clini shila wooten nted. Not Available [facility] (Lab) [address], [place], [address], 03/08/2024 20:42:54 04/03/20 25 04/03/2025 IMAGE GUIDE D PAP AND HPV REGAR DLESS image guided Pap, HPV regardless of Pap result SEE RESULT S BELOW CASE REPOR T: Cytol ogy Gynec ologi jeannie Repor t Case: [id number] Autho mateo jackson Provi solo: Sandra Pantoja, KD Colle cted: 04/03 1023 Order ing Locat ion: [place] Patho logy Recei dhiraj: 04/07 0811 First Scree n: Prosper Garrido, CT Rescr een: Albina Shah, CT Speci men: Rogelio crawford Pap - Image d, Cervi x STATE MENT OF ADEQU ACY: Satis facto ry for evalu ation Trans forma tion zone compo nent prese nt ----- ----- ----- ----- ----- ----- ----- ----- ----- ----- ----- ----- ----- ----- ----- ----- ----- ---- FINAL DIAGN OSIS: Negat dinesh for Intra epith elial Mike hanks or Anaya garvey ([facility]) . Elect marcus frazier by Albina Shah, CT on 025 at 1051 CDT ----- ----- ----- ----- ----- ----- ----- ----- ----- ----- ----- ----- ----- ----- ----- ----- ----- ---- HPV RESUL TS: HPV mRNA E6/E7 : No HPV mRNA Detec flex NOTE: This high risk HPV mRNA assay detec ts fourt een high- risk HPV types (16, 18, 31, 33, 35, 39, 45, 51, 52, 56, 58, 59, 66, 68) witho ut diffe renti ation . COMME NT: This speci men was revie wed by a Cytot echno logis t and/o r Patho logis t (as indic ated in this repor t) after evalu ation using the Thinp rep Imagi ng Syste m. CLINI JEANNIE INFOR MATIO N: Menst rual Statu s: LMP (if appli cable ): Clini jeannie Histo ry/Pr eviou s Pap: Type of Neopl carolina (if appli cable ): Signi fican t Clini jeannie Findi ngs: Other Histo ry: Hormo marcie (if appli cable ): PAP EDUCA KAYLAH L NOTE: The Pap Test is a scree ty test with an inher ent false negat dinesh rate. Liqui d-bas ed sampl ing may decre ase, but will not elimi marlene, false negat dinesh resul ts. A negat dinesh resul t does not precl ude the prese nce and/o r devel opmen t of disea se, since the prese nce of abnor mal cells in the sampl e depen ds on the locat ion of the lesio n and sampl ing techn ique. Shakila nued regul ar scree ty is the best metho d of cance r preve ntion . If repor flex cytol ogic findi ng do not corre late with physi jeannie and/o r histo rical findi ngs, furth er inves tigat ion is recom trixie d, as clini shila wooten nted. Not Available [facility] (Lab) [address], [place], [address], 04/08/2025 11:55:22 07/04/20 24 07/04/2024 US, pelvi s No observ ation record ed. [email or web address] [facility] [address], [place], [address], 07/04/2024 12:54:56 07/04/20 24 07/04/2024 US, trans vagin al No observ ation record ed. [email or web address] [facility] [address], [place], [address], 07/04/2024 12:55:10 07/04/20 24 07/04/2024 US, kourtney s No observ ation record ed. [email or web address] [address], [place], [address], 07/04/2024 21:34:13 04/22/20 25 04/22/2025 MAMMO , diagn ostic , digit al, bilat eral No observ ation record ed. [facility] [address], [place], [address], 05/09/2025 04:02:54 04/22/20 25 04/22/2025 US, bredemetri t, unilsandra teral No observ ation record ed. [facility] [address], [place], [address], 05/09/2025 04:02:54 Result Notes None recorded. Problems Name Problem SNOMED Code Status Onset Date Resolution Date Notes Provider Name and Address Organization Details Recorded Time Pregnanc y test positive 333991894 Completed 201107/02/2021 examinati on or test, positive result;Re corded Elsewhere : No Locati on: [facility] So urce: EHR Chron ic: N Practic e ID: 0001 Bill able Time: 02:30:00 PM Arielle Caldwell mara [facility] 12:30:41 Uterine size for dates discrepa ncy [id number] Completed 201107/02/2021 UTERINE SIZE BRET-ANTEP AR;Practi ce ID: 0001 Arielle Caldwell [facility] 12:29:58 Threaten ed miscarri age [id number] Completed 201107/02/2021 Threatene d , antepartu m;Recorde d Elsewhere : No Locati on: [facility] So urce: EHR Chron ic: N Practic e ID: 0001 Bill able Time: 02:30:00 PM Arielle terry [facility] 12:30:11 anatomy study Completed 201107/02/2021 [facility] SURVEY;Pr actice ID: 0001 Arielle terry [facility] 12:29:36 Routine antenata l care Completed 201107/02/2021 Supervisi on of other normal ;Practice ID: 0001 Arielle terry [facility] 12:30:32 Adult health examinat ion Completed 201107/02/2021 Routine general medical examinati on at a health care facility; Practice ID: 0001 Arielle terry [facility] 12:28:54 Poor growth affectin g manageme nt [id number] Completed 201107/02/2021 Poor growth, affecting managemen t of mother, antepartu m condition or complicat ion;Recor ded Elsewhere : No Locati on: [facility] So urce: EHR Chron ic: N Practic e ID: 0001 Bill able Time: 03:00:00 PM Arielle terry [facility] 12:31:49 Delivery normal [id number] Completed 201107/02/2021 Normal delivery; Practice ID: 0001 Arielle terry [facility] 12:31:52 Single live from singleto n pregnanc y [id number] Completed 201107/02/2021 Mother with single liveborn; Practice ID: 0001 Arielle terry [facility] 12:30:27 Postpart um care Completed 201107/02/2021 Routine postpartu m follow-up ;Practice ID: 0001 Arielle terry [facility] 12:31:39 Premenop ausal menorrha selene Completed 201207/02/2021 Premenopa usal menorrhag ia;[facility]i [facility] 0001 [facility] 12:30:38 Female genital organ symptoms [id number] Completed 201207/02/2021 Unspecifi ed symptom associate d with female genital organs;Re corded Elsewhere : No Locati on: [facility] So urce: EHR Chron ic: N Practic e ID: 0001 Bill able Time: 01:15:00 PM Arielle terry [facility] 12:29:31 Galactor nilsa not associat ed with childbir th [id number] Completed 201307/02/2021 Galactorr hea not associate d with childbirt h;Practic e ID: 0001 Arielle Caldwell [facility] 12:29:40 Breast finding [id number] Completed 201307/02/2021 Other signs and symptoms in breast;Pr actice ID: 0001 [facility] 12:29:02 Vaginiti s and vulvovag initis Completed 201307/02/2021 Vaginitis and vulvovagi nitis, unspecifi ed;Record ed Elsewhere : No Locati on: [facility] So urce: EHR Chron ic: N Practic e ID: 0001 Bill able Time: 10:45:00 AM Arielle terry [facility] 12:29:55 Dysfunct ional uterine bleeding Completed 201307/02/2021 Other disorders of menstruat ion and other abnormal bleeding from female genital tract;Rec orded Elsewhere : No Locati on: [facility] So urce: EHR Chron ic: N Practic e ID: 0001 Bill able Time: 09:30:00 AM Arielle terry [facility] 12:29:27 Speciali radha medical examinat ion Completed 201307/02/2021 Routine gynecolog ical examinati on;Practi ce ID: 0001 [facility] 12:30:17 Screenin g for malignan t neoplasm of cervix Completed 201307/02/2021 Pap Smear;Pra ctice ID: 0001 [facility] 12:30:[address] Concept Completed 201507/02/2021 Encntr for lapel padder exam (general) (routine) w/o abn findings; Practice ID: 0001 Arielle Caldwell [facility] 12:30:20 Benign neoplasm of vulva [id number] Completed 201607/02/2021 Benign neoplasm of vulva;Pra ctice ID: 0001 [facility] 12:28:59 Vaginola bial hernia Completed 201607/02/2021 Other specified noninflam matory disorders of vagina;Pr actice ID: 0001 [facility] 12:29:53 Removal of intraute rine device Completed 201707/02/2021 Encounter for removal of intrauter ine contracep tive device;Pr actice ID: 0001 [facility] 12:30:34 Insertio n of intraute rine contrace ptive device Completed 201707/02/2021 Encounter for insertion of intrauter ine contracep tive device;Pr actice ID: 0001 [facility] 12:29:43 Pregnanc y test negative [id number] Completed 201707/02/2021 Encounter for test, result negative; Practice ID: 0001 Arielle terry [facility] 12:30:44 Micturit ion finding Completed 201707/02/2021 Urinary incontine nce;Recor ded Elsewhere : No Locati on: [facility] So urce: EHR Chron ic: N Practic e ID: 0001 Bill able Time: 10:30:00 AM Arielle terry [facility] 12:29:07 Contrace ptive sheath status [id number] Completed 201707/02/2021 Encounter for routine checking of intrauter ine contracep dev;Pract ice ID: 0001 Arielle terry [facility] 12:29:23 Contrace ption care manageme nt Completed 201707/02/2021 Encounter for contracep tive managemen t, unspecifi ed;Record ed Elsewhere : No Locati on: [facility] So urce: EHR Chron ic: N Practic e ID: 0001 Bill able Time: 04:00:00 PM Ariellepoly terry [facility] 12:29:[address] Concept Completed 201707/02/2021 Encntr for lapel padder exam (general) (routine) w abnormal findings; Practice ID: 0001 Arielle Caldwell [facility] 12:30:22 Evaluati on finding Completed 201707/02/2021 Oth abn and inconclus dinesh findings on dx imaging of breast;Re corded Elsewhere : No Locati on: [facility] So urce: EHR Chron ic: N Practic e ID: 0001 Bill able Time: 10:30:00 AM Arielle terry [facility] 12:29:09 Breast lump [id number] Completed 201707/02/2021 Unspecifi ed lump in unspecifi ed breast;Re corded Elsewhere : No Locati on: [facility] So urce: EHR Chron ic: N Practic e ID: 0001 Bill able Time: 10:30:00 AM Arielle terry [facility] 12:29:[address] Concept Completed 201807/02/2021 Encntr for routine child health exam w/o abnormal findings; Recorded Elsewhere : No Locati on: [facility] So urce: EHR Chron ic: N Practic e ID: 0001 Bill able Time: 01:00:00 PM Arielle terry [facility] 12:30:24 Pelvic and perineal pain [id number] Completed 201907/02/2021 Pelvic and perineal pain;Prac magalys ID: 0001 Arielle terry [facility] 12:29:47 Problem Notes None recorded. Procedures Surgical History Date Name Laterality Status Provider Name and Address Organization Details Recorded Time 07/30/20 24 hysteroscopy with endometrial ablation completed Marilyn Lopez [facility] 08/12/2024 10:22:02 07/30/20 24 SALPINGECTOMY, LAPAROSCOPIC (SURG) completed Corin Branham [facility] 08/23/2024 09:09:14 03/06/20 24 Date of Last Pap Smear completed Marilyn Lopez [facility] 08/12/2024 10:20:44 09/27/20 23 pelvic sling completed HELEN Arango [address], [place], [address], [facility] 03/06/2024 11:09:16 06/14/20 23 Date of Last Mammogram completed Nanci Bright [facility] 08/01/2023 10:16:36 03/21/20 23 Colposcopy completed HELEN Cabrera- [address], [place], [address], [facility] 03/21/2023 09:56:48 03/21/20 23 Colposcopy completed Nanci Bright [facility] 08/01/2023 10:17:42 03/25/20 22 Colposcopy completed Nate Johns MD [address], [place], [address], [facility] 03/25/2022 10:14:36 03/25/20 22 Colposcopy completed Arielle [facility] 03/29/2022 17:39:00 03/25/20 22 Colposcopy completed Arielle [facility] 03/29/2022 17:39:27 09/07/20 20 Breast augmentation w/implt completed Gagandeep Champion [facility] 10/15/2020 17:26:50 10/02/19 09 hernia repair completed Nanci Bright [facility] 07/19/2020 12:23:38 Imaging Results None recorded. Procedure Notes None recorded. Medical Equipment None Reported. Allergies No known drug allergies Medications Name Sig Start Date Stop Date Status Note LastModified by Organization Details LastModified Time amoxicill in 500 mg capsule TAKE 1 CAPSULE BY MOUTH THREE TIMES A DAY UNTIL GONE 12/27 completed Not Available Not Available Not Available Mirena 21 mcg/24 hr (up to 8 years) 52 mg intrauter ine device Take by intraute rine route. 08/12 completed Not Available Not Available Not Available azithromy latrice 250 mg tablet TAKE 2 TABLETS BY MOUTH TODAY, THEN TAKE 1 TABLET DAILY FOR 4 DAYS 12/27 completed Not Available Not Available Not Available fluconazo le 150 mg tablet TAKE 1 TABLET BY MOUTH TODAY. REPEAT IN 48 HOURS NEEDED 04/03 completed Not Available Not Available Not Available valacyclo vir 1 gram tablet take 1 tablet by oral route every day for 5 days with active outbreak active Not Available Not Available No t Available cephalexi n 250 mg capsule TAKE 3 CAPSULES BY MOUTH TWICE DAILY FOR 3 DAYS 07/02 completed Not Available Not Available Not Available metronida zole 0.75 % (37.5 mg/5 gram) vaginal gel INSERT 1 APPLICAT ORFUL VAGINALL Y EVERY DAY AT BEDTIME FOR 5 DAYS 04/03 completed Not Available Not Available Not Available prednison e 20 mg tablet TAKE 2 TABLETS BY MOUTH DAILY X5 DAYS 12/27 completed Not Available Not Available Not Available spironola ctone 100 mg tablet TAKE 1 TABLET BY MOUTH DAILY active Not Available Not Available No t Available penicilli n V potassium 500 mg tablet TAKE 1 TABLET BY MOUTH FOUR TIMES A DAY 12/27 completed Not Available Not Available Not Available metronida zole 500 mg tablet TAKE 1 TABLET BY MOUTH TWICE DAILY FOR 7 DAYS 08/12 completed Not Available Not Available Not Available acetamino phen 300 mg-codein e 30 mg tablet 02/20 completed Not Available Not Available Not Available valacyclo vir 500 mg tablet Take 1 tablet every day by oral route. 03/06 completed Not Available Not Available Not Available ciproflox acin 500 mg tablet TAKE 1 TABLET BY MOUTH EVERY 12 HOURS 02/17 completed Not Available Not Available Not Available acetamino phen 500 mg tablet 03/06 completed Not Available Not Available Not Available triamcino lone acetonide 0.1 % topical cream APPLY THIN LAYER TOPICALL Y TO THE AFFECTED AREA TWICE DAILY NEEDED 03/06 completed Not Available Not Available Not Available amoxicill in 500 mg tablet TAKE 1 TABLET BY MOUTH THREE TIMES DAILY UNTIL ALL TAKEN 02/20 completed Not Available Not Available Not Available nystatin- triamcino lone 100,000 unit/gram -0.1 % topical ointment APPLY TOPICALL Y TO THE AFFECTED AREA TWICE DAILY FOR 5 TO 7 DAYS 02/20 completed Not Available Not Available Not Available oxycodone -acetamin ophen 5 mg-325 mg tablet TAKE 1 TABLET BY MOUTH EVERY 4 HOURS NEEDED FOR PAIN 08/12 completed Not Available Not Available Not Available meclizine 25 mg tablet TAKE 1 TABLET BY MOUTH EVERY 6 HOURS NEEDED 02/20 completed Not Available Not Available Not Available oseltamiv ir 75 mg capsule TAKE 1 CAPSULE BY MOUTH TWICE A DAY X5 DAYS 12/27 completed Not Available Not Available Not Available clotrimaz ole-betam ethasone 1 %-0.05 % topical cream APPLY TOPICALL Y TO THE AFFECTED AND SURROUND ING AREAS TWICE DAILY IN THE MORNING AND IN THE EVENING FOR 2 WEEKS 04/03 completed Not Available Not Available Not Available dextroamp hetamine- amphetami ne ER 10 mg 24hr capsule,e xtend release TAKE 1 CAPSULE BY MOUTH DAILY active Not Available Not Available No t Available amoxicill in 250 mg capsule 02/20 completed Not Available Not Available Not Available etodolac 400 mg tablet TAKE 1 TABLET BY MOUTH ONCE EVERY 6-8 HOURS NEEDED FOR PAIN 12/27 completed Not Available Not Available Not Available hydroxyzi ne HCl 25 mg tablet TAKE 1 TABLET THREE TIMES A DAY NEEDED 02/17 completed Not Available Not Available Not Available scopolami ne 1 mg over 3 days transderm al patch APPLY 1 PATCH TOPICALL Y TO THE SKIN EVERY 72 HOURS 02/20 completed Not Available Not Available Not Available methylpre dnisolone 4 mg tablets in a dose pack TAKE 6 TABLETS ON DAY 1 DIRECTED ON PACKAGE AND DECREASE BY 1 TAB EACH DAY FOR A TOTAL OF 6 DAYS 12/27 completed Not Available Not Available Not Available Vitamin D2 1,250 mcg (50,000 unit) capsule take 1 capsule (45877BR ITS) by oral route every week 06/10 completed Prescrib ed Elsewher e: No Locat ion: [facility] odify By: mt dumont DateTime : 02/24/20 12 10:28:47 AM Not Available Not Available Not Available cefdinir 300 mg capsule TAKE 1 CAPSULE BY MOUTH TWICE DAILY FOR 7 DAYS 04/03 completed Not Available Not Available Not Available spironola ctone 50 mg tablet TAKE 1 TABLET BY MOUTH DAILY 08/01 completed Not Available Not Available Not Available amoxicill in 875 mg-potass ium clavulana te 125 mg tablet TAKE 1 TABLET BY MOUTH EVERY 12 HOURS UNTIL ALL GONE 12/27 completed Not Available Not Available Not Available oxycodone 5 mg tablet 03/06 completed Not Available Not Available Not Available Vitamin 27 mg iron-0.8 mg tablet take 1 tablet by oral route every day 06/10 completed Prescrib ed Mario e: No Locat ion: [facility] M odify By: mt dumont DateTime : 12/26/19 02:30:00 PM Not Available Not Available Not Available escitalop sylvia 10 mg tablet TAKE 1 & 1 2 (ONE & ONE HALF) TABLETS BY MOUTH ONCE DAILY 07/02 completed Not Available Not Available Not Available bupropion HCl XL 150 mg 24 hr tablet, extended release TAKE 1 TABLET BY MOUTH ONCE DAILY 02/20 completed Not Available Not Available Not Available [facility] Maryvalete ODT 75 mg disintegr ating tablet DISSOLVE 1 TABLET ON THE TONGUE DAILY NEEDED active Not Available Not Available No t Available Fluzone Quad (PF) 60 mcg (15 mcg x 4)/0.5 mL IM syringe PHARMACI ST ADMINIST ERED IMMUNIZA TION ADMINIST ERED AT TIME OF DISPENSI NG 09/03 completed Not Available Not Available Not Available Vitals Date Recorded Body height Body mass index (BMI) Body weight Systolic And Diastolic Provider Name and Address Organization Details Last Updated DateTime 03/06/2024 158.75 cm 21.8 kg/m2 42072.68 g 104/65 mm[Hg] Corin Branham [facility] 03/06/2024 11:01:52 Date Recorded Body height Body mass index (BMI) Body weight Systolic And Diastolic Provider Name and Address Organization Details Last Updated DateTime 04/03/2025 158.75 cm 20.9 kg/m2 79949.71 g 109/68 mm[Hg] Flavia Neff [facility] 04/03/2025 10:08:30 Date Recorded Body height Body mass index (BMI) Body weight Systolic And Diastolic Provider Name and Address Organization Details Last Updated DateTime 06/17/2024 158.75 cm 20.7 kg/m2 47579.12 g 123/66 mm[Hg] Marilyn Lopez [facility] 06/17/2024 16:29:34 Date Recorded Body height Body mass index (BMI) Body weight Systolic And Diastolic Provider Name and Address Organization Details Last Updated DateTime 08/12/2024 158.75 cm 21.1 kg/m2 37695.31 g 114/54 mm[Hg] Marilyn John [facility] 08/12/2024 10:20:05 Social History Question Answer Notes LastModified by Organizat ion Details LastModified Time Tobacco Smoking Status Never Smoker Manuela Anderson null, [facility] 12/27/2022 10:51:51 How Many Years Have You Consumed Alcohol? 20 Information not available 12/27/2022 Are You Blind Or Do You Have Difficulty Seeing? No Information n ot available 02/17/2022 What Is Your Level Of Caffeine Consumption? Moderate Information not available 12/27/2022 In The 14 Days Before Symptom Onset, Have You Had Close Contact With A Laboratory-confirm ed COVID-19 While That Case Was Ill? No Information n ot available 12/27/2022 In The 14 Days Before Symptom Onset, Have You Had Close Contact With A Person Who Is Under Investigation For COVID-19 While That Person Was Ill? No Information not available 12/27/2022 Have You Been To An Area Known To Be High Risk For COVID-19? No Information not available 12/27/2022 Are You Deaf Or Do You Have Serious Difficulty Hearing? No Information not available 02/17/2022 What Type Of Diet Are You Following? REGULAR Information n ot available 02/17/2022 What Is The Highest Grade Or Level Of School You Have Completed Or The Highest Degree You Have Received? [id number] Information not available 12/27/2022 Are There Any Guns Present In Your Home? No Information not available 12/27/2022 What Was The Date Of Your Most Recent Tobacco Screening? 08/01/2023 [email or web address] Information not available 08/01/2023 Have You Ever Been Counseled For Unhealthy Alcohol Use? No [email or web address] Information not available 08/01/2023 Do You Use Protection During Sex? No Information not available 12/27/2022 Do You Use Your Seat Belt Or Car Seat Routinely? Yes Information not available 12/27/2022 Do You Have Smoke And Carbon Monoxide Detectors In Your Home? Yes Information not available 12/27/2022 How Much Tobacco Do You Smoke? No [email or web address] Information not available 07/19/2020 Do You Use Sunscreen Routinely? No Information not available 12/27/2022 Have You Used IV Drugs? No Information not available 12/27/2022 Do You Have Difficulty Walking Or Climbing Stairs? No Information not available 12/27/2022 Sex: Unknown Functional Status Question Answer Note LastModified by Organizat ion Details LastModified Time Do you use any illicit or recreational drugs? No Information not available 12/27/2022 What is your level of alcohol consumption? Occasional [email or web address] Information not available 07/19/2020 Do you or have you ever used smokeless tobacco? Never used smokeless tobacco Information not available 12/27/2022 Are you able to walk independently without assistance or assistive devices? YESWOREST Information not available 02/17/2022 Are you able to care for yourself independently? 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 No Information not available 12/27/2022 Do you or have you ever used e-cigarettes or vape? Never used electronic cigarettes Information not available 12/27/2022 What is your exercise level? Heavy Information not available 12/27/2022 Mental Status Question Answer Note LastModified by Organization D etails LastModified Time Do you feel stressed (tense, restless, nervous, or anxious, or unable to sleep at night)? [id number] Information not available 12/27/2022 Family History Relationship Description Onset Age of this Age Resolved Age Notes LastModified by Organization Details LastModified Time Maternal Grandmother Malignant neoplasm of pancreas [email or web address] Not available 07/17 13:05:29 Mother Appendectomy [email or web address] Not rayo ilable 07/17/2020 13:05:43 Medical History Condition Response Allergies (Food, seasonal, environmental ) N Other N Breast Cancer N Drug/Latex Allergies/Reactions N Blood Transfusion N Dermatologic Disorders N Lung Disease N Defects or Inherited Disease N Breast Problem N Gestational Diabetes N Hematologic disorders N Anesthesia Complications N History of STI Y Deep Vein Thrombosis N Polycystic ovary syndrome N Anxiety Disorder N Autoimmune disease N Arthritis N Infertility N Polyps N Acid Reflux (GERD) N History of abnormal pap Y Cancer N Stroke N Varicosities N Neurologic/Epilepsy N Endometriosis N High Cholesterol N Headaches N Fibromyalgia N Kidney Disease N Heart Problems N Kidney or Bladder Problems N Thyroid Problems N GI Problems N Eating Disorder N Anemia Y Art (IVF or FET) N Psychiatric Illness N Ovarian Cancer N Diabetes N Pulmonary (TB, Asthma) N Hepatitis/Liver Disease N No Past Medical History N Eczema Y Urinary Tract Infection N Abuse/Domestic Violence N Asthma N Trauma/Violence N Depression/ depression N Heart Disease N Pre-Eclampsia N Hypertension N Osteoporosis N Thrombophilias N Gynecological History Statement/Question Response Abnormal Pap Y Date of Last Mammogram 06/14/2023 Flow Light Date of LMP 03/20/2025 On BCP's at Conception? N N Was last menstrual period normal N STIs/STDs Yes HPV Vaccine N Colposcopy 03/25/2022 Duration of Flow (days) 4 Current Control Method Tubal Ligat ion Age at First Child 19 Sexually Active? Y Menses Monthly N Age of first menstrual cycle 13 Date of Last Pap Smear 03/06/2024 Sexual Problems? N LMP Approximate N Obstetrics History GPAL:G 3 P 2 0 1 2 Type Value Full Term 2 Spontaneous 1 Living 2 Total 3 Past Encounters Encounter ID Performer Location Encounter Start Date Encounter Closed Date Diagnosis/Indication Diagnosis SNOMED-CT Code Diagnosis ICD10 Code Diagnosis IMO Codes Diagnosis Note [id number] Dinora Adam CNM [facility] [address] [address] 07/17/2020 10:36:28 07/17/2020 13:26:17 Gynecologic examination 32480172 Z01.419 [id number] Cookie Agosto [facility] [address] [address] 09/03/2020 13:04:08 09/03/2020 13:37:30 Mass of right breast 5667653558 8701935 N63.10 [place] size mass (3-4cm) felt in the right breast upper inner quadrant approx b/t 11-12 o'clock positions. BOth breasts area somewhat dense with some fibrocysti c changes present bilaterall y but this finding is definitely different from left breast. We agreed to pursue imaging. Orders printed to take to imaging center. Time spent in visit is a total of 15 mins with at least 50% of visit consisting of counseling and review of plan of care. [id number] Nate Johns MD [facility] [address],[place] [address] 07/02/2021 12:12:19 07/02/2021 13:10:18 Urinary symptoms 148400071 R39.9 Vaginitis 99577163 N76.0 To treat for vulvovagin itis, treated for fungal infection and dermatitis . [id number] Nate Johns MD [facility] [address],[place] [address] 02/10/2022 09:28:15 02/10/2022 11:46:09 Dysuria 46859518 R30.9 [id number] HELEN Arango [facility] [address],[place] [address] 02/17/2022 09:49:39 02/17/2022 10:54:06 Gynecologic examination 12675951 Z01.419 Z11.51 Suggested Calcium with Vitamin D 1200-1500m g daily. Patient advised to get an annual flu shot in the fall and she could obtain at [facility] or [facility] take care clinic. Also to obtain TDap vaccinatio n if you have not had one in the last 10 years. Recommend yearly mammograms . Encouraged monthly self breast exams. Encourage safe sexual practices, to use condoms and limit partners if not already in a monogamous relationsh ip. Engage in daily exercise of low impact aerobic exercise 45-60 minutes 4-5 times weekly. Avoid tobacco and illicit drugs as well as using moderation with alcohol intake less than 1-2 8 oz beverages daily. This lifestyle behavior pattern will lead to less health conditions and longer life span. If BMI greater than 25 weight watchers or dietary consult advised. All questions have been answered. Patient appears to understand informatio n, but if you have any questions please call or respond to this email. WWELast pap in 2020 normal. Hx of abnormal paps per patient throughout the years.Pap done todayMiren a IUD, due for removal on or before 02/13/2025H as chronic constipati on, takes daily magnesium supplement s and this helps. She would like a GI referral, this was sent.Tariq teran had a breast augmentati on 1.5 years ago, mammogram order given to patient.Mohit s seen for urinary symptoms recently, had protein in urine. Is going to bring back 24 hour urine order by Dr. Johns. No current symptoms.V ulvar lesion noted on right labia majora, lesion is about 1mm in size, brown/paris k, with irregular borders. I recommende d vulvar biopsy, she will RTC for this.STI testing declinedNe xt WWE due in 1 year Lesion of vulva 43336236 6 N90.89 Constipation 13600620 K5 9.00 [id number] Nate Johns MD [facility] [address],[place] [address] 03/25/2022 09:14:02 03/25/2022 11:23:12 Abnormal cervical Papanicolaou smear 933786130 R87.619 normal colposcopi c examinatio n that was unsatisfac tory. It ECC was performed. [id number] Nate Johns MD [facility] [address],[place] [address] 07/20/2022 16:52:16 07/21/2022 10:21:38 Cyst of right ovary 1812588798 7653469 N83.201 [id number] Nate Johns MD [facility] [address],[place] [address] 07/29/2022 11:49:22 08/01/2022 15:13:04 Cyst of ovary 55775851 N83.209 this patient is a 41-year-ol d female who presents for follow-up on ovarian cyst. Patient had MRI that showed a enhancing cystic structure the ovary. Pelvic ultrasound showed a simple ovarian cyst. Discussed the etiology, natural history, treatment ovarian cyst. We spent more than 20 minutes face-to-fa ce. We agreed to follow-up for symptoms. More than 50% of visit was counseling . [id number] HELEN Arango [facility] [address],[facility] [place] [place] [address] 12/27/2022 10:43:15 12/27/2022 11:17:37 Vulval irritation 993084205 N90.89 vaginitis panel sentSTI endocervic al testing sentvulvar care guidelines discussed, d/c use of scented productspo ssible recurrent HSV outbreak, she already started valtrex course - continue valtrex for a total of 5 dayssuspec t some contact dermatitis and yeast as well - rx sent, R/B/A discussedR TC for WWE Time spent in visit is a total of 22 mins with at least 50% of visit consisting of counseling and review of plan of care. Venereal d isease screening 766756777 Z11.3 Vaginal irritation 12606 6004 N89.8 [id number] HELEN Arango [facility] [address] [address] 02/20/2023 09:41:29 02/20/2023 10:32:12 Gynecologic examination 58691845 Z01.419 Z11.51 Suggested Calcium with Vitamin D 1200-1500m g daily. Patient advised to get an annual flu shot in the fall and she could obtain at [facility] or [facility] clinic. Also to obtain TDap vaccinatio n if you have not had one in the last 10 years. Recommend yearly mammograms . Encouraged monthly self breast exams. Encourage safe sexual practices, to use condoms and limit partners if not already in a monogamous relationsh ip. Engage in daily exercise of low impact aerobic exercise 45-60 minutes 4-5 times weekly. Avoid tobacco and illicit drugs as well as using moderation with alcohol intake less than 1-2 8 oz beverages daily. This lifestyle behavior pattern will lead to less health conditions and longer life span. If BMI greater than 25 weight watchers or dietary consult advised. All questions have been answered. Patient appears to understand informatio n, but if you have any questions please call or respond to this email. WWEBC - Mirena IUD, inserted 02/13/2018, due for removal/re placement 02/13/2026( +) IUD strings noted, happy with this methodlast pap, 02/17/22 LGSIL, HPV (+) - colpo 03/23 LATRICE 1repeat pap done todaySTI testing declinedMa mmogram order givenUTD with PCPdryness with IC, recommend crisco to vulva twice daily - use this as lubricatio n with IC. If no improvemen t consider vaginal estrogen.R TC in 1 year or sooner if needed Screening for malignant neoplasm of breast 271743955 Z12.39 [id number] [facility] [address] [address] 03/21/2023 09:02:21 03/21/2023 10:02:52 Screening procedure 80554726 Z13.9 Human britta llomavirus deoxyribonucleic acid detected, high risk on cervical specimen 612463372 R87.810 See procedure notes.Post -procedure instructio ns reviewed with understand ing verbalized .Will contact with results & next steps in plan of care. Counseled on Pap/HPV guidelines /Testing/R esults with understand ing verbalized .All questions answered to patient satisfacti on. Booklet & additional resources regarding pap smear/HPV/ Pap results given. [email or web address] w.cancer.g ov/types/c ervical/un derstandin g-abnormal -hpv-and-p ap-test-re sults/unde rstanding- cervical-c hanges.pdf [id number] HELEN Arango [facility] [address] [address] 08/01/2023 14:16:06 08/01/2023 15:15:33 Pain in pelvis 62126762 R10.2 Female uri nary stress incontinence 64018566 N39.3 Reviewed management optionsdec reased pelvic floor muscle tone noted on examrecomm ended pelvic floor physical therapy, discussed vaginal estrogen as wellencour aged limiting caffeinesh e would like to see urogyne for consult for aditional management options - referral placed Time spent in visit is a total of 25 mins with at least 50% of visit consisting of counseling and review of plan of care. [id number] Sandra PantojaHELEN [facility] [address] [address] 03/06/2024 10:50:20 03/06/2024 12:23:58 Gynecologic examination 59788915 Z01.419 Z11.51 WWEpap updateddec lined STI screenmamm ogram order given - due 4rout ine labs UTD/PCP Patient advised to get an annual flu shot in the fall and she could obtain at local pharmacy. Also to obtain TDap vaccinatio n if you have not had one in the last 10 years. Recommend yearly mammograms . Encouraged monthly self breast exams. Encourage safe sexual practices, to use condoms and limit partners if not already in a monogamous relationsh ip. Engage in regular exercise. Avoid tobacco and illicit drugs This lifestyle behavior pattern will lead to less health conditions and longer life span. If BMI greater than 25 dietary consult advised. All questions have been answered. Patient appears to understand informatio n, but if you have any questions please call or respond to this email. Screening for malignant neoplasm of breast 160823181 Z12.39 Contracept ion care management 589522824 Z30.9 Mirena IUD, inserted 02/13/2018d oing well, desires to continuewi ll 02/13/2026 - can remove/rep lace sooner if irregular bleeding patterns occur Genital he rpes simplex 35171028 A60.9 refills sent (r/b/a reviewed), take at first sx of active HSV outbreak [id number] Nate Johns MD [facility] [address] [address] 06/17/2024 15:30:38 06/17/2024 17:08:43 Menorrhagia 498136095 N92.0 43-year-ol d female with severe menorrhagi a. She reports heavy vaginal bleeding. She has longstandi ng very heavy bleeding. Her menses are regular. However, they require double protection . Patient has accidents, getting blood on her bedding and clothing. Is affected work. She changes a pad or tampon every hour. She leaks blood around the pad and tampon. This bleeding has a profound impact on her quality of life and her activities of daily living. we discussed treatment options detail. We talked about repeat tearing IUD. We talked about endometria l ablation. Talked about hormonal contracept ion. Discussed hysterecto my. She would like to proceed with endometria l ablation. I described the procedure to her in great detail. The patient understand s the procedure. The procedure was described to the patient in great detail. the patient also understand s the risks. The risks were also explained in detail. She understand s that injuries May occur during surgery. She understand s these injuries can result in hospitaliz ation, more surgery, and severe illness. She understand s there is risk of hemorrhage and infection. I spent over 40 minutes on her care in total. We are to proceed with endometria l ablation and laparoscop ic salpingect carolyne. Female sterilization 608 13069 Z30.2 [id number] Nate Johns MD [facility] [address] [address] 07/04/2024 09:26:32 07/04/2024 10:03:07 Menorrhagia 160134339 N92.0 43-year-ol d female with severe menorrhagi a. She reports heavy vaginal bleeding. She has longstandi ng very heavy bleeding. Her menses are regular. However, they require double protection . Patient has accidents, getting blood on her bedding and clothing. Is affected work. She changes a pad or tampon every hour. She leaks blood around the pad and tampon. This bleeding has a profound impact on her quality of life and her activities of daily living. we discussed treatment options detail. We talked about repeat tearing IUD. We talked about endometria l ablation. Talked about hormonal contracept ion. Discussed hysterecto my. She would like to proceed with endometria l ablation. I described the procedure to her in great detail. The patient understand s the procedure. The procedure was described to the patient in great detail. the patient also understand s the risks. The risks were also explained in detail. She understand s that injuries May occur during surgery. She understand s these injuries can result in hospitaliz ation, more surgery, and severe illness. She understand s there is risk of hemorrhage and infection. I spent over 40 minutes on her care in total. We are to proceed with endometria l ablation and laparoscop ic salpingect carolyne. [id number] Nate Johns MD [facility] [address] [address] 08/12/2024 09:55:08 08/12/2024 11:13:06 Vulvovaginitis 79747032 N76.0 Amenorrhea 74031455 N91. 2 patient presents for postop follow-up after endometria l ablation. She is recovering normally. She has Watery vaginal discharge. She denies any foul-smell ing discharge. She denies any nausea, vomiting, fever, chills. She also had salpingect carolyne in recovering from that. She has no complaints . She is some abdominal tenderness . Incisions are clean dry and intact. patient reports vulvar irritation . Apparent vulvovagin itis. To treat with combined antifungal /steroid cream. [id number] Sandra HELEN Pantoja [facility] [address] [address] 04/03/2025 09:45:09 04/03/2025 11:52:50 Gynecologic examination 48313241 Z01.655 [id number] [facility] - BSPap - done todaySTI screen - declinedMa mmogram - order givenColon cancer screening - order for screening [facility] - UTD/PCPRTC in 1 yr or sooner if needed Suggested Calcium with Vitamin D daily. Patient advised to get an annual flu shot in the fall and she could obtain at local pharmacy. Also to obtain TDap vaccinatio n if you have not had one in the last 10 years. Recommend yearly mammograms . Encouraged monthly self breast exams. Encourage safe sexual practices, to use condoms and limit partners if not already in a monogamous relationsh ip. Engage in regular exercise. Avoid tobacco and illicit drugs. This lifestyle behavior pattern will lead to less health conditions and longer life span. If BMI greater than 25 dietary consult advised. All questions have been answered. Mass of right breast 253 5002342 5406961 N63.10 [id number] order given, bilateral diagnostic mammogram with R u/s Screening for malignant neoplasm of colon 652988566 Z12.11 [id number] Health Concerns Section Related Observation LastModified by Organization Detai ls LastModified Time None Recorded Concern Status LastModified by Organization Details LastModified Time None Recorded Advance Directives Directive None Recorded Payers Insurance Date Sequence Insurance Name Policy Number Policy Hayes Covered Member ID Hayes Member ID Guarantor Name 04/03/2025 1 RAO [id number] Radha Fisher [id number] Radha Fisher Notes Date Note Type Note Provider Name and Address Organization Details Recorded Time 03/06/20 24 text/ht ml Annual GYNReported by PatientGenitourinary symptomsFor menstrual cycle, patient reportsnormal menses. For urinary symptoms, patient reportsno hematuriaandno incontinence. For vulva, patient reportsno genital lesion. For vagina, patient reportsnormal vaginal discharge.Breast symptomsFor breast, patient reportsno breast pain,no breast lump, andno nipple discharge.ContraceptionFor current contraception, patient reportssatisfied with current contraceptionandintrauterine device (iud).Endocrine symptomsFor sexual complaints, patient reportsno sexual complaints,no pain during intercourse, andnormal libido. For menopausal symptoms, patient reportsno menopausal symptomsandnormal vaginal lubrication.Psychological symptomsFor psychological symptoms, patient reportsno depression,no anxiety, andno pmdd.Preventative measuresFor preventive measures, patient reportsencourage self breast examination,encourage regular exercise,encourage no tobacco use, andencourage regular mammograms starting age 40.43yo WWElast pap 02/20/2023 : HPV (+)colpo 03/2023: benignmirena IUD for BC, inserted 02/13/2018had urethral sling done 09/2023 with urogyne, doing well/no issues mammogram last 06/2023 takes valtrex with genital HSV outbreaks, needs refills HELEN Arango [address], [place], [address], [facility] 03/06/2024 16:12:18 06/17/20 24 text/ht ml 43-year-old female with severe menorrhagia. She reports heavy vaginal bleeding. She has longstanding very heavy bleeding. Her menses are regular. However, they require double protection. Patient has accidents, getting blood on her bedding and clothing. Is affected work. She changes a pad or tampon every hour. She leaks blood around the pad and tampon. This bleeding has a profound impact on her quality of life and her activities of daily living. we discussed treatment options detail. We talked about repeat tearing IUD. We talked about endometrial ablation. Talked about hormonal contraception. Discussed hysterectomy. She would like to proceed with endometrial ablation. I described the procedure to her in great detail. The patient understands the procedure. The procedure was described to the patient in great detail. the patient also understands the risks. The risks were also explained in detail. She understands that injuries May occur during surgery. She understands these injuries can result in hospitalization, more surgery, and severe illness. She understands there is risk of hemorrhage and infection. I spent over 40 minutes on her care in total. We are to proceed with endometrial ablation and laparoscopic salpingectomy. Nate Johns MD [address], [place], [address], [facility] 06/17/2024 16:50:18 08/12/20 24 text/ht ml patient presents for postop follow-up after endometrial ablation. She is recovering normally. She has Watery vaginal discharge. She denies any foul-smelling discharge. She denies any nausea, vomiting, fever, chills. She also had salpingectomy in recovering from that. She has no complaints. She is some abdominal tenderness. Incisions are clean dry and intact. Nate Johns MD [address], [place], [address], [facility] 08/12/2024 11:09:33 04/03/20 25 text/ht ml Annual GYNReported by PatientGenitourinary symptomsFor menstrual cycle, patient reportsnormal menses. For urinary symptoms, patient reportsno hematuriaandno incontinence. For vulva, patient reportsno genital lesion. For vagina, patient reportsnormal vaginal discharge.Breast symptomsFor breast, patient reportsno breast pain,no breast lump, andno nipple discharge.ContraceptionFor current contraception, patient reportssatisfied with current contraceptionandtubal ligation.Endocrine symptomsFor sexual complaints, patient reportsno sexual complaints,no pain during intercourse, andnormal libido. For menopausal symptoms, patient reportsno menopausal symptomsandnormal vaginal lubrication.Psychological symptomsFor psychological symptoms, patient reportsno depression,no anxiety, andno pmdd.Preventative measuresFor preventive measures, patient reportsencourage self breast examination,encourage regular exercise,encourage no tobacco use, andencourage regular mammograms starting age 40.44yo wweh/o BS, endometrial ablationlast pap 03/2024 : nilm, HPV (-) right breast lump x 1 monthlast mammogram 06/2024 HELEN Arango [address], [place], [id number], [facility] 04/03/2025 11:24:14 OBGyn Episode Ob Episode Information Episode Created Date Number of Fetuses Patient Bloodtype Patient rh Status Prepregnancy Weight lbs Domestic Partner Domestic Partner Phone Father Name Liquefaction And Regasification Helper Status 07/19/20 1 CLOSED Fetus Data First Name Last Name Admitted to NICU Weight (g) Sex Living Outcome Pediatric Complications Fetus ID Race Codes Race Delivery Type 3656.85 8704 M Full Term 5425 Vaginal Delivery Chuckie Calculation Initial Chuckie Date Initial Exam Date Initial Exam Provider Initial Ultrasound Date Last Menstrual Period Date Ultra Sound Weeks Gestation 0 Eighteen To Twenty Week Chuckie Update Ultra Sound Date Fundal Height At Umbil Quickening Date Ultra Sound Latest Weeks Gestation Final Chuckie Confirmed By Final Chuckie Confirmed Date Final Chuckie Date Ultra Sound Latest Days Gestation 0 0 Menstrual History Last Menstrual Date Menses Monthly On Bcp Conception Prior Menses Frequency Hcg Plus Date Menarche Onset Age Delivery Information Delivery Date Delivery Type Labor Anesthesia Weeks Gestation Incision Type Labor Labor Length Hrs Delivered By Post Complications Tubal Sterilization Discharge Date Comments 0 Discharge Information Feeding Method Contraceptive Method Maternal HG B and HCT Levels Ob Episode Information Episode Created Date Number of Fetuses Patient Bloodtype Patient rh Status Prepregnancy Weight lbs Domestic Partner Domestic Partner Phone Father Name Liquefaction And Regasification Helper Status 07/19/20 20 1 CLOSED Fetus Data First Name Last Name Admitted to NICU Weight (g) Sex Living Outcome Pediatric Complications Fetus ID Race Codes Race Delivery Type 2891.64 9 F Full Term 5426 Vaginal Delivery Chuckie Calculation Initial Chuckie Date Initial Exam Date Initial Exam Provider Initial Ultrasound Date Last Menstrual Period Date Ultra Sound Weeks Gestation 0 Eighteen To Twenty Week Chuckie Update Ultra Sound Date Fundal Height At Umbil Quickening Date Ultra Sound Latest Weeks Gestation Final Chuckie Confirmed By Final Chuckie Confirmed Date Final Chuckie Date Ultra Sound Latest Days Gestation 0 0 Menstrual History Last Menstrual Date Menses Monthly On Bcp Conception Prior Menses Frequency Hcg Plus Date Menarche Onset Age Delivery Information Delivery Date Delivery Type Labor Anesthesia Weeks Gestation Incision Type Labor Labor Length Hrs Delivered By Post Complications Tubal Sterilization Discharge Date Comments 2 HSV Discharge Information Feeding Method Contraceptive Method Maternal HG B and HCT Levels Ob Episode Information Episode Created Date Number of Fetuses Patient Bloodtype Patient rh Status Prepregnancy Weight lbs Domestic Partner Domestic Partner Phone Father Name Liquefaction And Regasification Helper Status 07/19/20 20 1 CLOSED Fetus Data First Name Last Name Admitted to NICU Weight (g) Sex Living Outcome Pediatric Complications Fetus ID Race Codes Race Delivery Type 5424 Chuckie Calculation Initial Chuckie Date Initial Exam Date Initial Exam Provider Initial Ultrasound Date Last Menstrual Period Date Ultra Sound Weeks Gestation 0 Eighteen To Twenty Week Chuckie Update Ultra Sound Date Fundal Height At Umbil Quickening Date Ultra Sound Latest Weeks Gestation Final Chuckie Confirmed By Final Chuckie Confirmed Date Final Chuckie Date Ultra Sound Latest Days Gestation 0 0 Menstrual History Last Menstrual Date Menses Monthly On Bcp Conception Prior Menses Frequency Hcg Plus Date Menarche Onset Age Delivery Information Delivery Date Delivery Type Labor Anesthesia Weeks Gestation Incision Type Labor Labor Length Hrs Delivered By Post Complications Tubal Sterilization Discharge Date Comments 9 1998 nmiscarra ige Discharge Information Feeding Method Contraceptive Method Maternal HG B and HCT Levels
--- OUTSIDE RECORDS SUMMARY | 2025-08-04 15:55 | XMS_ITS | Clinical Summary ---
Author Organization [facility] Address [address] [place] [phone] Phone Care Team Providers Care Railroad Watchman Name Role Phone Azar Espinoza MD Primary Care Provider [phone] Social History Tobacco Use Types Packs/Day Years Used Date Smoking Tobacco: Never Assessed Comments Unknown Sex and Gender Information Value Date Recorded Sex Assigned at Not on file Legal Sex Female 6:10 AM SENIOR INFORMATION SECURITY CONSULTANT Gender Identity Not on file Sexual Orientation Not on file Plan of Treatment Health Maintenance Due Date Last Done Comments DTAP/TDAP/TD VACCINES (1 - Tdap) 1998 HEPATITIS B VACCINES (1 of 3 - 19+ 3-dose series) 01/1998 HPV/Cotest (21-29) 2000 HPV VACCINES (1 - 3-dose SCDM series) 2006 CERVICAL CANCER SCREENING 2009 HPV/Cotest (30-65) 2009 PAP SMEAR 2009 BREAST CANCER SCREENING 2019 COLORECTAL SCREENING 2024 Colorectal Cancer Screening 2024 FIT-DNA Q 3 years 2024 FIT/FOBT Q 1 year 2024 Flex Sig/CT Colonography Q 5 years 2024 INFLUENZA VACCINE (#1) 2025 Insurance BCBS BLUE ACCESS/TRUE BLUE PPO Care Teams Railroad Watchman Relationship Specialty Start Date End Date Azar Espinoza MD [address] [place] [phone] PCP - General Family Practice 05/10/12
[2025-08-04 16:00] LABS: Hematocrit 37.0 % (37.0-47.0); Hemoglobin 12.5 g/dL (12.0-15.0); Mean Corpuscular HGB Conc 33.8 g/dl (32-36); Mean Corpuscular Hemoglobin 31.5 pg (26-34); Mean Corpuscular Volume 93.2 fl (80-100); Platelet Count Result 248 k/mm3 (150-375); Red Blood Count 3.97 M/mm3 (4.2-5.4); White Blood Count 17.9 K/mm3 (4.5-10.0)
[2025-08-04 16:11] LABS: Alanine Aminotransferase 21 U/L (6-35); Albumin Level 4.7 g/dL (3.5-5.1); Alkaline Phosphatase 49 U/L (38-126); Anion Gap 11 mmol/L (4-12); Aspartate Amino Transferase 32 U/L (14-36); Bilirubin,Total 1.2 mg/dL (0.2-1.3); Blood Urea Nitrogen 13 mg/dL (7-17); Calcium 9.1 mg/dL (8.4-10.2); Carbon Dioxide 23 mmol/L (22-30); Chloride 99 mmol/L (98-107); Estimated CRCL calculation 74 ml/min; Estimated Glomerular Filt Rate > 60; Glucose 107 mg/dL (65-110); Potassium 4.0 mmol/L (3.4-5.0); Sodium 133 mmol/L (137-145); Total Protein 7.8 g/dL (6.3-8.2)
[2025-08-04] MEDS: ONDANSETRON INJ 4 MG/2 ML VIAL IV PUSH ×2 (16:22→20:10)
[2025-08-04] MEDS: MORPHINE SULFATE (*CRX) 4 MG/ML INJ 2 MG IV PUSH (16:22)
[2025-08-04 16:24] LABS: Band Neutrophils Percent 4 % (0-6); Lymphocytes Absolute Manual 0.53 K/mm3 (1.1-4.5); Lymphocytes Percent Manual 3.0 % (18-44); Monocytes Absolute Manual 0.89 K/mm3 (0.1-0.90); Monocytes Percent Manual 5 % (3-9); Neutrophils Absolute Manual 16.46 K/mm3 (1.3-6.7); Neutrophils Percent Manual 88 % (46-73); Total Cells Counted 100
[2025-08-04 16:25] LABS: Schistocytes None Seen
[2025-08-04 17:02] VITALS: BP 123/61; PULSE 96; RESP 16; O2SAT 100
--- NOTE | 2025-08-04 17:52 | ED.ABDPAIN ---
HPI - Abdominal Pain General Chief Complaint: Abdominal Pain <SENIA Arnold Last Filed: 08/04/25 18:49> Stated Complaint: colonoscopy this AM, c/o abdominal pain <SENIA Arnold Last Filed: 08/04/25 18:49> Time Seen by Provider: 08/04/25 15:46 <SENIA Arnold Last Filed: 08/04/25 18:49> Source: patient <SENIA Arnold Last Filed: 08/04/25 18:49> Mode of arrival: ambulatory <SENIA Arnold Last Filed: 08/04/25 18:49> Limitations: no limitations <SENIA Arnold Last Filed: 08/04/25 18:49> History of Present Illness HPI narrative: Patient is a 44-year-old female who presents the ED with report of lower abdominal pain. Patient reports she underwent routine colonoscopy this morning with Dr. Encarnacion. States she had a hard time with the prep and had been feeling nauseous prior to the procedure. Since having the procedure, she has been having persistent pain throughout her lower abdomen. Has had nausea and 1 episode of vomiting. Did pass a small amount of mucus like stool. Denies rectal bleeding. Denies fevers. <SENIA Arnold Last Filed: 08/04/25 18:49> Related Data Home Medications: Home Medications ?Medication ?Instructions ?Recorded ?Confirmed ?Last Taken ?Type magnesium 200 mg tablet 400 mg PO DAILY 07/25/24 08/04/25 08/03/25 History spironolactone 100 mg tablet 100 mg PO DAILY 07/25/24 08/04/25 08/03/25 History <SENIA Arnold Last Filed: 08/04/25 18:49> Allergies/Adverse Reactions: Allergies Allergy/AdvReac Type Severity Reaction Status Date / Time No Known Allergies Allergy Verified 08/04/25 15:46 <SENIA Arnold Last Filed: 08/04/25 18:49> Review of Systems Review of Systems: All systems reviewed & are unremarkable except as noted in HPI. <Esha Vuong PA-C - Last Filed: 08/04/25 18:49> All systems reviewed & are unremarkable except as noted in HPI and below <Esha Vuong PA-C - Last Filed: 08/04/25 18:49> [facility] Past Medical History Medical History: Medical History Anemia <Esha Vuong PA-C - Last Filed: 08/04/25 18:49> Social History Social History: Social History Smoking status: Never smoker Alcohol intake: never Drinks per week: 3 Substance use: never Substance use type: does not use Living arrangements: with family Spiritual care concerns: No <Esha Vuong PA-C - Last Filed: 08/04/25 18:49> Exam Narrative: GENERAL: Uncomfortable appearing, thin, non-toxic, in mild acute distress d/t pain. HEAD: Normocephalic, atraumatic. RESPIRATORY: Airway patent, respirations nonlabored. Clear to auscultation bilaterally, no rales, rhonchi, wheezing. CARDIOVASCULAR: Regular rate and rhythm without murmurs, rubs, or gallops. ABDOMINAL: Soft, mild diffuse tenderness throughout lower abdomen, no rebound, nondistended. Normoactive BS. MUSCULOSKELETAL: Moves all extremities. No gross deformities. SKIN: Warm, dry, normal color. NEURO: A&O X3. Speech clear. Cranial nerves II-XII grossly intact. Steady gait. No ataxic movements. PSYCHIATRIC: Appropriate mood and affect. Normal interaction. <Esha Vuong PA-C - Last Filed: 08/04/25 18:49> Course CIGAR HEAD PERFORATOR/PA Physician Supervision This visit was performed by both a physician and an APC; I performed all aspects of the medical decision making component of this evaluation as documented. <Sandy Collado MD - Last Filed: 08/04/25 18:56> Vital Signs Vital signs: Vital Signs Temperature 98.2 F 08/04/25 15:43 Pulse Rate 96 08/04/25 15:43 Respiratory Rate 18 08/04/25 15:43 Blood Pressure 129/70 08/04/25 15:43 Pulse Oximetry 100 08/04/25 15:43 Oxygen Delivery Room Air 08/04/25 15:43 Temperature 98.2 F 08/04/25 15:43 Pulse Rate 96 08/04/25 17:02 Respiratory Rate 16 08/04/25 17:02 Blood Pressure 123/61 08/04/25 17:02 Pulse Oximetry 100 08/04/25 17:02 Oxygen Delivery Room Air 08/04/25 15:43 <Esha Vuong PA-C - Last Filed: 08/04/25 18:49> Vital Signs Temperature 98.2 F 08/04/25 15:43 Pulse Rate 96 08/04/25 15:43 Respiratory Rate 18 08/04/25 15:43 Blood Pressure 129/70 08/04/25 15:43 Pulse Oximetry 100 08/04/25 15:43 Oxygen Delivery Room Air 08/04/25 15:43 Temperature 98.2 F 08/04/25 15:43 Pulse Rate 96 08/04/25 17:02 Respiratory Rate 16 08/04/25 17:02 Blood Pressure 123/61 08/04/25 17:02 Pulse Oximetry 100 08/04/25 17:02 Oxygen Delivery Room Air 08/04/25 15:43 <Sandy Collado MD - Last Filed: 08/04/25 18:56> MDM - Abdominal Pain MDM Narrative Medical decision making narrative: Patient presented to ED with lower abdominal pain status post routine unremarkable colonoscopy this morning. Vital signs stable upon arrival. Patient is afebrile. CBC with white blood cell count of 17.9. Neutrophil predominance. 4% bands. CMP unremarkable. Lactic acid within normal range at 1.1. CT scan of abdomen/pelvis was obtained and unremarkable. No evidence of perforation, no intraperitoneal free air. No other acute findings. Discussed lab and imaging findings with Dr. Encarnacion, general surgery. Advised if patient is still very uncomfortable, can admit for observation/pain control overnight. Discussed lab and imaging findings, recommendations with patient and family. Utilize shared decision-making. Patient would prefer to stay overnight. She is still very uncomfortable. Having lots pain still despite morphine. Will give additional pain control. Clear liquids. pRN nausea meds. updated on plan. In agreement. <Esha Vuong PA-C - Last Filed: 08/04/25 18:49> Medical Records Attestation: I reviewed the patient's medical records. <Esha Vuong PA-C - Last Filed: 08/04/25 18:49> Lab Data Attestation: I reviewed the patient's lab results. <Esha Vuong PA-C - Last Filed: 08/04/25 18:49> Result diagrams: 08/04/25 15:55 08/04/25 15:55 <Esha Vuong PA-C - Last Filed: 08/04/25 18:49> Labs: Lab Results 08/04/25 08/04/25 Range/Units 15:55 18:41 WBC 17.9 H (4.5-10.0) K/mm3 RBC 3.97 L (4.2-5.4) M/mm3 Hgb 12.5 (12.0-15.0) g/dL Hct 37.0 (37.0-47.0) % MCV 93.2 (80-100) fl MCH 31.5 (26-34) pg MCHC 33.8 (32-36) g/dl RDW 11.8 (11.5-14.5) % Plt Count 248 (150-375) k/mm3 MPV 9.2 (7.4-10.4) fl Immature Gran % (Auto) Not Reportable Neut % (Auto) Not Reportable Lymph % (Auto) Not Reportable [place] % (Auto) Not Reportable Eos % (Auto) Not Reportable Baso % (Auto) Not Reportable Lymph # (Auto) Not Reportable [place] # (Auto) Not Reportable Eos # (Auto) Not Reportable Baso # (Auto) Not Reportable Abs Immat Gran (auto) Not Reportable Absolute Neuts (auto) Not Reportable Absolute Nucleated RBC Not Reportable Total Counted 100 Neutrophils % (Manual) 88 H (46-73) % Band Neutrophils % 4 (0-6) % Lymphocytes % (Manual) 3.0 L (18-44) % Monocytes % (Manual) 5 (3-9) % Nucleated RBC % Not Reportable Abs Neuts (Manual) 16.46 H (1.3-6.7) K/mm3 Abs Lymphs (Manual) 0.53 L (1.1-4.5) K/mm3 Abs Monocytes (Manual) 0.89 (0.1-0.90) K/mm3 Platelet Estimate Adequate (Adequate) Schistocytes None seen Sodium 133 L (137-145) mmol/L Potassium 4.0 (3.4-5.0) mmol/L Chloride 99 (98-107) mmol/L Carbon Dioxide 23 (22-30) mmol/L Anion Gap 11 (4-12) mmol/L BUN 13 (7-17) mg/dL Creatinine 0.62 L (0.7-1.0) mg/dL Estim Creat Clear Calc 74 ml/min Estimated GFR > 60 (59 - ) Glucose 107 (65-110) mg/dL Lactic Acid 1.1 (0.7-2.0) mmol/L Calcium 9.1 (8.4-10.2) mg/dL Total Bilirubin 1.2 (0.2-1.3) mg/dL AST 32 (14-36) U/L ALT 21 (6-35) U/L Alkaline Phosphatase 49 (38-126) U/L Total Protein 7.8 (6.3-8.2) g/dL Albumin 4.7 (3.5-5.1) g/dL Urine Color Pending Urine Appearance Pending Urine pH Pending Ur Specific [place] Pending Urine Protein Pending Urine Glucose (UA) Pending Urine Ketones Pending Ur Blood (Man) Pending Urine Nitrate Pending Urine Bilirubin Pending Urine Urobilinogen Pending Leukocyte Esterase Rfl Pending <Esha Vuong PA-C - Last Filed: 08/04/25 18:49> Lab Results 08/04/25 08/04/25 Range/Units 15:55 18:41 WBC 17.9 H (4.5-10.0) K/mm3 RBC 3.97 L (4.2-5.4) M/mm3 Hgb 12.5 (12.0-15.0) g/dL Hct 37.0 (37.0-47.0) % MCV 93.2 (80-100) fl MCH 31.5 (26-34) pg MCHC 33.8 (32-36) g/dl RDW 11.8 (11.5-14.5) % Plt Count 248 (150-375) k/mm3 MPV 9.2 (7.4-10.4) fl Immature Gran % (Auto) Not Reportable Neut % (Auto) Not Reportable Lymph % (Auto) Not Reportable [place] % (Auto) Not Reportable Eos % (Auto) Not Reportable Baso % (Auto) Not Reportable Lymph # (Auto) Not Reportable [place] # (Auto) Not Reportable Eos # (Auto) Not Reportable Baso # (Auto) Not Reportable Abs Immat Gran (auto) Not Reportable Absolute Neuts (auto) Not Reportable Absolute Nucleated RBC Not Reportable Total Counted 100 Neutrophils % (Manual) 88 H (46-73) % Band Neutrophils % 4 (0-6) % Lymphocytes % (Manual) 3.0 L (18-44) % Monocytes % (Manual) 5 (3-9) % Nucleated RBC % Not Reportable Abs Neuts (Manual) 16.46 H (1.3-6.7) K/mm3 Abs Lymphs (Manual) 0.53 L (1.1-4.5) K/mm3 Abs Monocytes (Manual) 0.89 (0.1-0.90) K/mm3 Platelet Estimate Adequate (Adequate) Schistocytes None seen Sodium 133 L (137-145) mmol/L Potassium 4.0 (3.4-5.0) mmol/L Chloride 99 (98-107) mmol/L Carbon Dioxide 23 (22-30) mmol/L Anion Gap 11 (4-12) mmol/L BUN 13 (7-17) mg/dL Creatinine 0.62 L (0.7-1.0) mg/dL Estim Creat Clear Calc 74 ml/min Estimated GFR > 60 (59 - ) Glucose 107 (65-110) mg/dL Lactic Acid 1.1 (0.7-2.0) mmol/L Calcium 9.1 (8.4-10.2) mg/dL Total Bilirubin 1.2 (0.2-1.3) mg/dL AST 32 (14-36) U/L ALT 21 (6-35) U/L Alkaline Phosphatase 49 (38-126) U/L Total Protein 7.8 (6.3-8.2) g/dL Albumin 4.7 (3.5-5.1) g/dL Urine Color Pending Urine Appearance Pending Urine pH Pending Ur Specific [place] Pending Urine Protein Pending Urine Glucose (UA) Pending Urine Ketones Pending Ur Blood (Man) Pending Urine Nitrate Pending Urine Bilirubin Pending Urine Urobilinogen Pending Leukocyte Esterase Rfl Pending <Sandy Collado MD - Last Filed: 08/04/25 18:56> Imaging Data Attestation: I personally reviewed and interpreted this imaging study as follows: <Esha Vuong PA-C - Last Filed: 08/04/25 18:49> Radiologist's impression: ITS Impressions Abdomen/Pelvis CT 08/04/25 17:09 IMPRESSION: No acute abnormality is noted in the abdomen and pelvis. All CT scans at this facility are performed using low dose modulation techniques as appropriate to perform exam including the following: automated exposure control; use of iterative reconstruction technique; adjustment of the mA and/or kV according to patient size (this includes techniques or standardized protocols for targeted exams where dose is matched to indication/reason for exam). <Esha Vuong PA-C - Last Filed: 08/04/25 18:49> ITS Impressions Abdomen/Pelvis CT 08/04/25 17:09 IMPRESSION: No acute abnormality is noted in the abdomen and pelvis. All CT scans at this facility are performed using low dose modulation techniques as appropriate to perform exam including the following: automated exposure control; use of iterative reconstruction technique; adjustment of the mA and/or kV according to patient size (this includes techniques or standardized protocols for targeted exams where dose is matched to indication/reason for exam). <Sandy Collado MD - Last Filed: 08/04/25 18:56> Discharge Plan Discharge Clinical Impression: Bilateral lower abdominal pain, History of colonoscopy <Esha Vuong PA-C - Last Filed: 08/04/25 18:49> Patient Disposition: Still a Patient <SENIA Arnold Last Filed: 08/04/25 18:49> Condition: Stable <SENIA Arnold Last Filed: 08/04/25 18:49> Patient Language: Tristanian <Esha Vuong PA-C - Last Filed: 08/04/25 18:49> Prescriptions: No Action spironolactone 100 mg tablet 100 mg PO DAILY Rx Instructions: For Acne magnesium 200 mg Tablet 400 mg PO DAILY oxycodone-acetaminophen 5-325 mg tablet 1 tablet PO Q4H PRN (Reason: pain) Qty: 10 0RF <Esha Vuong PA-C - Last Filed: 08/04/25 18:49> Follow-up/Referrals: Ivet,Sanket Salazar MD [Primary Care Provider, Unknown] <Esha Vuong PA-C - Last Filed: 08/04/25 18:49>
[2025-08-04] MEDS: MORPHINE SULFATE (*CRX) 4 MG/ML INJ IV PUSH ×2 (18:10→20:10)
[2025-08-04 19:10] LABS: Add Urine Microscopic? YES; Appearance Urine Clear (Clear); Glucose Urine UA Negative (Negative); Leukocyte Esterase Ur Negative LEU/UL (Negative); Nitrate Urine Negative (Negative); Non Pathogenic Casts 0-2; Specific Grav Ur 1.034 (1.001-1.035)
--- NOTE | 2025-08-04 20:00 | ADMGEN ---
This patient, Radha Rod, was admitted to [facility] Surg Room 327-01. Patient/family oriented to hospital policies and general routines including ID bracelet, bed and alarms, visiting hours, pain management, procedures, bathroom and other care routines, personal items, smoking policy, room service/diet, and visiting hours. Information on how to activate the Rapid Response Team has been discussed. Patient/Family are encouraged to report perceived risks to care and to ask questions if they do not understand what they are told or what they should do.
[2025-08-04 20:04] VITALS: BP 109/53; PULSE 91; RESP 18; TEMP 37.4; O2SAT 100
[2025-08-04 20:20] VITALS: BMI 21.9
[2025-08-04] MEDS: SPIRONOLACTONE 50 MG TABLET 100 MG PO (21:47)
[2025-08-04] MEDS: SODIUM CHLORIDE 0.9% IV 1,000 ML 75 ML IV CONT (21:47)
[2025-08-05] MEDS: ACETAMINOPHEN 325 MG TABLET 650 MG PO (01:46)
[2025-08-05 04:44] VITALS: BP 121/59; PULSE 101; RESP 18; TEMP 37.3; O2SAT 100
[2025-08-05 05:55] LABS: Hematocrit 34.0 % (37.0-47.0); Hemoglobin 11.4 g/dL (12.0-15.0); Mean Corpuscular HGB Conc 33.5 g/dl (32-36); Mean Corpuscular Hemoglobin 31.3 pg (26-34); Mean Corpuscular Volume 93.4 fl (80-100); Platelet Count Result 201 k/mm3 (150-375); Red Blood Count 3.64 M/mm3 (4.2-5.4); White Blood Count 14.6 K/mm3 (4.5-10.0)
[2025-08-05 06:26] LABS: Alanine Aminotransferase 14 U/L (6-35); Albumin Level 3.7 g/dL (3.5-5.1); Alkaline Phosphatase 39 U/L (38-126); Anion Gap 8 mmol/L (4-12); Aspartate Amino Transferase 22 U/L (14-36); Bilirubin,Total 1.2 mg/dL (0.2-1.3); Blood Urea Nitrogen 11 mg/dL (7-17); Calcium 8.4 mg/dL (8.4-10.2); Carbon Dioxide 21 mmol/L (22-30); Chloride 101 mmol/L (98-107); Estimated CRCL calculation 67 ml/min; Estimated Glomerular Filt Rate > 60; Glucose 103 mg/dL (65-110); Potassium 4.1 mmol/L (3.4-5.0); Sodium 130 mmol/L (137-145); Total Protein 6.5 g/dL (6.3-8.2)
[2025-08-05] MEDS: MORPHINE SULFATE (*CRX) 4 MG/ML INJ IV PUSH ×3 (08:25→20:42)
[2025-08-05 08:26] VITALS: RESP 18; O2SAT 100
[2025-08-05] MEDS: ONDANSETRON INJ 4 MG/2 ML VIAL IV PUSH ×2 (08:26→15:03)
--- NOTE | 2025-08-05 09:27 | PM.IMHP ---
H&P: HPI History of Present Illness Date/Time: 08/05/25 09:27 Chief Complaint: Lower abdominal pain Narrative: This is a 44-year-old female who underwent screening colonoscopy yesterday by Dr. Encarnacion, which was normal. She reports about 1 hour after getting home from the colonoscopy, she had a sudden onset of lower abdominal pain. Her pain radiates across her entire lower abdomen. She had associated nausea and vomiting. She then came into the ED for evaluation. Labs showed a WBC count of 17,900. Otherwise labs were unremarkable. UA negative for UTI. CT scan of the abdomen and pelvis showed no acute abnormality. She was admitted for observation in the setting of intractable abdominal pain. Review of Systems Review of Systems: All systems reviewed & are unremarkable except as noted in HPI and below PMFSH Past Medical History Medical History Anemia Surgical History Surgical History History of hysteroscopy 07/2024 - Endometrial ablation with hysteroscopy D&C, laparoscopic bilateral salpingectomy History of right inguinal hernia repair History of tubal ligation Family History Family History Grandparent Cancer Social History Social History Smoking status: Never smoker Alcohol intake: current Drinks per week: 1 Substance use: never Substance use type: does not use Lack of Transportation: No Lack of Food: Never True Current Housing: I Have Housing Concerned About Future Housing: No Difficulty Paying Gas/Electric Bills: No Difficulty Paying for Meds: No Currently Unemployed: No Education: High School Diploma/GED Difficulty w/ Childcare or Family Care: No Living arrangements: with family Spiritual care concerns: No Meds Home Medications and Allergies Home Medications ?Medication ?Instructions ?Recorded ?Confirmed ?Type magnesium 200 mg tablet 400 mg PO HS 07/25/24 08/04/25 History spironolactone 100 mg tablet 100 mg PO HS 07/25/24 08/04/25 History Allergies Allergy/AdvReac Type Severity Reaction Status Date / Time No Known Allergies Allergy Verified 08/04/25 20:22 Vital Signs Vital Signs - 24 hr 11/03/25 15:43 08/04/25 17:02 08/04/25 20:04 Temperature 98.2 F 99.3 F Pulse Rate 96 96 91 Respiratory Rate 18 16 18 Blood Pressure 129/70 123/61 109/53 L Pulse Oximetry 100 100 100 Oxygen Delivery Room Air 08/05/25 04:44 Temperature 99.1 F Pulse Rate 101 H Respiratory Rate 18 Blood Pressure 121/59 L Pulse Oximetry 100 Oxygen Delivery Exam Const: General: comfortable and no acute distress Nutritional Appearance: thin Orientation/consciousness: patient oriented x3 HENMT: Head: normocephalic and atraumatic Ears: hearing grossly normal bilaterally Mouth: Yes moist mucous membranes Eyes: General: appearance normal, both eyes and all related structures Pupils: Equal, round and reactive pupils present Neck: Neck: normal visual inspection and full ROM Resp: Effort & Inspection: no respiratory distress Auscultation: clear to auscultation bilaterally Cardio: Rate: regular rate Rhythm: regular rhythm Peripheral pulses: Peripheral pulses 2+ throughout GI: Inspection: non-distended and no visible herniation GI Palp: Yes Soft to palpation, Yes Tenderness to palpation present (GI) (tender across the lower abdomen), No Guarding due to palpation present (GI), Yes No hepatosplenomegaly present and No Rebound tenderness present Percussion: Yes normal to percussion Auscultation: normal bowel sounds Rectal Exam: deferred Skin: General skin exam: normal color Neuro: General: moves all extremities and no focal motor deficits Speech: normal speech Motor exam (neuro): 5/5 motor strength present throughout Extrem: General: normal to inspection and no edema Psych: Mental Status: mental status grossly normal Attitude: cooperative Insight: Good insight present (Psych) Judgement: Good judgement present (Psych) H&P: Results Labs Labs: Short CBC 08/04/25 08/05/25 Range/Units 15:55 05:35 WBC 17.9 H 14.6 H (4.5-10.0) K/mm3 Hgb 12.5 11.4 L (12.0-15.0) g/dL Hct 37.0 34.0 L (37.0-47.0) % Plt Count 248 201 (150-375) k/mm3 BMP 08/04/25 08/05/25 15:55 05:35 Sodium 133 L 130 L Potassium 4.0 4.1 Chloride 99 101 Carbon Dioxide 23 21 L BUN 13 11 Creatinine 0.62 L 0.69 L Glucose 107 103 Calcium 9.1 8.4 Liver Function 08/04/25 08/05/25 Range/Units 15:55 05:35 Total Bilirubin 1.2 1.2 (0.2-1.3) mg/dL AST 32 22 (14-36) U/L ALT 21 14 (6-35) U/L Alkaline Phosphatase 49 39 (38-126) U/L Albumin 4.7 3.7 (3.5-5.1) g/dL Urine 08/04/25 Range/Units 18:41 Urine Color Yellow (Yellow) Urine Appearance Clear (Clear) Urine pH 5.0 (5.0-9.0) Ur Specific Egan 1.034 (1.001-1.035) Urine Protein Trace (Negative) mg/dL Urine Glucose (UA) Negative (Negative) mg/dL Imaging CT scan - abdomen: Radiologist's impression: ITS Impressions Abdomen/Pelvis CT 08/04/25 17:09 IMPRESSION: No acute abnormality is noted in the abdomen and pelvis. All CT scans at this facility are performed using low dose modulation techniques as appropriate to perform exam including the following: automated exposure control; use of iterative reconstruction technique; adjustment of the mA and/or kV according to patient size (this includes techniques or standardized protocols for targeted exams where dose is matched to indication/reason for exam). Assessment and Plan Assessment and plan (1) Lower abdominal pain: Code(s): R10.30 - Lower abdominal pain, unspecified Status: Acute Assessment and Plan: Patient presents to the ER with abdominal pain a few hours after her screening colonoscopy yesterday, which was normal. She also had nausea and vomiting. Her abdominal pain is across the lower abdomen and she is still having pain this morning. She does not have any peritoneal signs on exam. Her WBC count came down from 17 to 14 this morning. She is afebrile. Her CT scan was reviewed with the Radiologist and there is no evidence of free intraperitoneal air or other acute findings on the CT that would explain her abdominal pain. The only other findings on the CT is a simple-appearing right ovarian cyst and she has multiple appendicoliths within her appendix, which measures 8 mm but does not have any surrounding inflammatory stranding to suggest acute appendicitis. No urgent surgical indication at this time. Will start advancing her diet as tolerated and continue IV fluids until she is tolerating a diet. Will order dicyclomine to see if this helps with her pain. Continue analgesics as needed. Will also add simethicone to see if this provides any relief for potential gas-related pain. Will monitor closely and repeat labs and abdominal exam tomorrow. Discussed with the patient that if her leukocytosis worsens or pain is not improving, then we may repeat her CT scan tomorrow. (2) Leukocytosis: Code(s): D72.829 - Elevated white blood cell count, unspecified Status: Acute Assessment and Plan: WBC count 17.9 on admission and is down to 14.6 this morning with observation without antibiotics. She has been afebrile and there is no obvious signs of infection or evidence of any infectious source on her workup. This could be reactive from the colonoscopy, but will monitor and repeat labs again tomorrow morning. (3) Right ovarian cyst: Code(s): N83.201 - Unspecified ovarian cyst, right side Status: Acute Assessment and Plan: Simple right ovarian cyst on CT, which patient has a history of ovarian cysts. Unlikely to be the source of her pain without any evidence of rupturing. Will monitor as above. Plan I have discussed the patient's case and plan of care with Dr. Encarnacion.
[2025-08-05 10:00] VITALS: BP 116/54; PULSE 96; RESP 18; TEMP 37.2; O2SAT 100
[2025-08-05] MEDS: SODIUM CHLORIDE 0.9% IV 1,000 ML 75 ML IV CONT (12:20)
[2025-08-05] MEDS: SIMETHICONE 125 MG CHEW TAB PO ×3 (12:21→20:41)
[2025-08-05] MEDS: DICYCLOMINE HCL 10 MG CAPSULE 20 MG PO ×2 (12:21→16:30)
[2025-08-05 20:00] VITALS: PULSE 96; RESP 18; O2SAT 98
[2025-08-05 20:07] VITALS: BP 113/58; PULSE 105; RESP 16; TEMP 37.2; O2SAT 98
[2025-08-05 22:00] VITALS: BP 107/50; PULSE 96; RESP 18; TEMP 37.2; O2SAT 98
[2025-08-06] VITALS (13 sets, daily range): BP systolic 112–129; BP diastolic 52–72; PULSE 77–110; RESP 15–19; TEMP 36.3–37.6; O2SAT 94–100
[2025-08-06] MEDS: MORPHINE SULFATE (*CRX) 4 MG/ML INJ IV PUSH (00:08)
[2025-08-06] MEDS: ONDANSETRON INJ 4 MG/2 ML VIAL IV PUSH ×3 (00:08→17:51)
[2025-08-06] MEDS: SODIUM CHLORIDE 0.9% IV 1,000 ML 75 ML IV CONT (01:40)
[2025-08-06 06:37] LABS: Hematocrit 32.0 % (37.0-47.0); Hemoglobin 10.5 g/dL (12.0-15.0); Immature Granulocyte Percent A 0.6 % (0-0.5); Lymphocytes Absolute Auto 0.98 K/mm3 (0.9-3.2); Mean Corpuscular HGB Conc 32.8 g/dl (32-36); Mean Corpuscular Hemoglobin 31.4 pg (26-34); Mean Corpuscular Volume 95.8 fl (80-100); Nucleated Red Blood Cells Absolute Auto 0.000 K/mm3 (0.0-0.012); Nucleated Red Blood Cells Perc 0.0 % (0.0-0.2); Platelet Count Result 176 k/mm3 (150-375); Red Blood Count 3.34 M/mm3 (4.2-5.4); White Blood Count 12.6 K/mm3 (4.5-10.0)
[2025-08-06 07:01] LABS: Anion Gap 3 mmol/L (4-12); Blood Urea Nitrogen 7 mg/dL (7-17); Calcium 8.2 mg/dL (8.4-10.2); Carbon Dioxide 26 mmol/L (22-30); Chloride 101 mmol/L (98-107); Estimated CRCL calculation 65 ml/min; Estimated Glomerular Filt Rate > 60; Glucose 95 mg/dL (65-110); Potassium 4.0 mmol/L (3.4-5.0); Sodium 130 mmol/L (137-145)
[2025-08-06] MEDS: MORPHINE SULFATE (*CRX) 4 MG/ML INJ 2 MG IV PUSH (08:09)
[2025-08-06] MEDS: PIPERACILLIN/TAZOBACTAM SOD 3.375 GM in SODIUM CHLORIDE 0.9% IV 50 ML 100 ML IVPB ×2 (12:00→17:12)
--- NOTE | 2025-08-06 13:19 | PM.PNGS ---
Progress Note: A&P Assessment and Plan (1) Acute appendicitis: Qualifiers: Acute appendicitis type: with generalized peritonitis Appendicitis gangrene presence: unspecified whether gangrene present Appendicitis perforation presence: unspecified whether perforation present Appendicitis abscess presence: unspecified whether abscess present Qualified Code(s): K35.209 - Acute appendicitis with generalized peritonitis, without abscess, unspecified as to perforation Code(s): K35.80 - Unspecified acute appendicitis Status: Acute Assessment and Plan: I reviewed the CT and discussed the findings with the patient. There is now some increased size of the appendix and some surrounding reactive ascites suggesting acute appendicitis. I have recommended laparoscopic appendectomy, possible open. Will start Zosyn IV. I discussed that I will inspect the remainded of the abdomen to rule out any other complications related to the recent colonoscopy. I discussed the risk of conversion to open and need to fix any other abnormal findings. I also discussed the options of treating appendicitis with antibiotics alone, but there is a chance of recurrence. Patient voiced her understanding and is agreeable to proceeding with surgery. (2) History of colonoscopy: Code(s): Z98.890 - Other specified postprocedural states Status: Acute Subjective Subjective Date/Time Seen: 08/06/25 13:19 Interval history: Patient still having pain. It has migrated a little to the RLQ today and she states last night was pretty bad. No fevers. Exam GI: Inspection: non-distended GI Palp: Yes Soft to palpation, Yes Tenderness to palpation present (GI) and Yes Guarding due to palpation present (GI) (RLQ and LLQ) Objective Data Vital Signs Vital Signs: Vital Signs - 24 hr 08/05/25 20:00 08/05/25 20:07 08/05/25 22:00 Temperature 98.9 F 98.9 F Pulse Rate 96 105 H 96 Respiratory Rate 18 16 18 Blood Pressure 113/58 L 107/50 L Pulse Oximetry 98 98 98 Oxygen Delivery Room Air 08/06/25 05:38 Temperature 99.6 F Pulse Rate 99 Respiratory Rate 18 Blood Pressure 117/55 L Pulse Oximetry 96 Oxygen Delivery Intake/Output Intake/Output: Intake & Output 08/03/25 08/04/25 08/05/25 08/06/25 22:59 23:59 23:59 23:59 Intake Total 1377.8 1000 Balance 1377.8 1000 Meds/Results Medications: Active Medications Generic Name Dose Route Start Last Admin Trade Name Freq PRN Reason Stop Dose Admin Acetaminophen 650 mg 08/04/25 18:34 08/05/25 01:46 Acetaminophen 325 Mg Tablet PO 650 mg Q4H PRN Administration Mild Pain (1-3) or Fever Dicyclomine HCl 20 mg 08/05/25 09:43 08/05/25 16:30 Dicyclomine Hcl 10 Mg Capsule PO 20 mg QID PRN Administration Abdominal Cramping Sodium Chloride 1,000 mls @ 75 mls/hr 08/04/25 21:40 08/06/25 01:40 Normal Saline Iv IV CONT 75 mls/hr .[id number] [facility] Administration Piperacillin Sod/Tazobactam 50 mls @ 100 mls/hr 08/06/25 11:35 Sod 3.375 gm/ Sodium Chloride IVPB Q6HR [facility] [place] Morphine Sulfate 4 mg 08/04/25 18:34 08/06/25 00:08 Morphine Sulfate (*Crx) 4 Mg/Ml Inj IV PUSH 4 mg Q2H PRN Administration Pain Rated 7-10 Morphine Sulfate 2 mg 08/04/25 18:34 08/06/25 08:09 Morphine Sulfate (*Crx) 4 Mg/Ml Inj IV PUSH 2 mg Q2H PRN Administration Pain Rated 4-6 Ondansetron HCl 4 mg 08/04/25 18:34 08/06/25 08:10 Ondansetron Inj 4 Mg/2 Ml Vial IV PUSH 4 mg Q4H PRN Administration Nausea Simethicone 125 mg 08/05/25 13:00 08/05/25 20:41 Simethicone 125 Mg Chew Tab PO 125 mg QID [facility] Administration Spironolactone 100 mg 08/04/25 21:45 08/05/25 20:43 Spironolactone 50 Mg Tablet PO Not Given HS [facility] Radiology Results: ITS Impressions Abdomen/Pelvis CT 08/06/25 10:30 IMPRESSION: 1. Appendicoliths and worsened dilatation of the appendix, consistent with appendicitis. 2. Worsened small volume of ascites. Labs Labs: Laboratory Results - last 24 hr 08/06/25 06:10 WBC 12.6 H RBC 3.34 L Hgb 10.5 L Hct 32.0 L MCV 95.8 MCH 31.4 MCHC 32.8 RDW 12.2 Plt Count 176 MPV 10.1 Immature Gran % (Auto) 0.6 H Neut % (Auto) 81.9 H Lymph % (Auto) 7.8 L [place] % (Auto) 9.3 H Eos % (Auto) 0.2 Baso % (Auto) 0.2 Lymph # (Auto) 0.98 [place] # (Auto) 1.2 H Eos # (Auto) 0.0 Baso # (Auto) 0.0 Abs Immat Gran (auto) 0.07 H Absolute Neuts (auto) 10.3 H Absolute Nucleated RBC 0.000 Nucleated RBC % 0.0 Sodium 130 L Potassium 4.0 Chloride 101 Carbon Dioxide 26 Anion Gap 3 L BUN 7 Creatinine 0.70 Estim Creat Clear Calc 65 Estimated GFR > 60 Glucose 95 Calcium 8.2 L
--- NOTE | 2025-08-06 13:24 | WPDHPUPDATE1 ---
History and Physical Update Update Date/Time: 08/06/25 13:24 History and Physical has been reviewed, including an updated exam of the patient. There are NO changes in the patient's condition. Risks, benefits, and alternatives have been discussed and questions answered. Patient agrees to proceed with procedure.
--- NOTE | 2025-08-06 13:34 | P.PNAN_ITS ---
Anes - Initial Pre Proc Eval Procedure: Operation Date: 08/06/25 14:00 Proposed Procedures p Laparoscopic Appendectomy - Adebayo Encarnacion DO Date/Time: 08/06/25 13:34 Surgeon: Adebayo Encarnacion DO Pre Op Diagnosis: Lower abd pain s/p colonscopy Patient Data Age: 45 Gender: F Height: 1.55 m Weight: 52.5 kg Last Vital Signs Temp 37.6 C 08/06/25 05:38 Pulse 99 08/06/25 05:38 Resp 18 08/06/25 05:38 BP 117/55 L 08/06/25 05:38 Pulse Ox 96 08/06/25 05:38 O2 Del Method Room Air 08/05/25 20:00 Allergies Allergy/AdvReac Type Severity Reaction Status Date / Time No Known Allergies Allergy Verified 08/05/25 15:22 Home Medications ?Medication ?Instructions ?Recorded ?Confirmed ?Type magnesium 200 mg tablet 400 mg PO HS 07/25/24 History spironolactone 100 mg tablet 100 mg PO HS 07/25/2412/24 History Laboratory Tests 08/06/25 06:10 WBC 12.6 H K/mm3 (4.5-10.0) RBC 3.34 L M/mm3 (4.2-5.4) Hgb 10.5 L g/dL (12.0-15.0) Hct 32.0 L % (37.0-47.0) MCV 95.8 fl (80-100) MCH 31.4 pg (26-34) MCHC 32.8 g/dl (32-36) RDW 12.2 % (11.5-14.5) Plt Count 176 k/mm3 (150-375) MPV 10.1 fl (7.4-10.4) Immature Gran % (Auto) 0.6 H % (0-0.5) Neut % (Auto) 81.9 H % (45.5-73.1) Lymph % (Auto) 7.8 L % (18.3-44.2) [place] % (Auto) 9.3 H % (2.6-8.5) Eos % (Auto) 0.2 % (0-4.4) Baso % (Auto) 0.2 % (0.2-1.2) Lymph # (Auto) 0.98 K/mm3 (0.9-3.2) [place] # (Auto) 1.2 H K/mm3 (0.1-0.6) Eos # (Auto) 0.0 K/mm3 (0-0.3) Baso # (Auto) 0.0 K/mm3 (0.0-0.1) Abs Immat Gran (auto) 0.07 H K/mm3 (0.00-0.031) Absolute Neuts (auto) 10.3 H K/mm3 (1.3-6.7) Absolute Nucleated RBC 0.000 K/mm3 (0.0-0.012) Nucleated RBC % 0.0 % (0.0-0.2) Sodium 130 L mmol/L (137-145) Potassium 4.0 mmol/L (3.4-5.0) Chloride 101 mmol/L (98-107) Carbon Dioxide 26 mmol/L (22-30) Anion Gap 3 L mmol/L (4-12) BUN 7 mg/dL (7-17) Creatinine 0.70 mg/dL (0.7-1.0) Estim Creat Clear Calc 65 ml/min Estimated GFR > 60 (59 - ) Glucose 95 mg/dL (65-110) Calcium 8.2 L mg/dL (8.4-10.2) Patient hx anesthesia problems: none Family hx anesthesia problems: none Results Review: All pre-operative results and documents have been reviewed as part of the pre- operative evaluation. [facility] [place] Past Medical History Medical History Anemia Surgical History Surgical History History of hysteroscopy 07/2024 - Endometrial ablation with hysteroscopy D&C, laparoscopic bilateral salpingectomy History of right inguinal hernia repair History of tubal ligation Family History Family History Grandparent Cancer Social History Social History Smoking status: Never smoker Alcohol intake: current Drinks per week: 1 Substance use: never Substance use type: does not use Lack of Transportation: No Lack of Food: Never True Current Housing: I Have Housing Concerned About Future Housing: No Difficulty Paying Gas/Electric Bills: No Difficulty Paying for Meds: No Currently Unemployed: No Education: High School Diploma/GED Difficulty w/ Childcare or Family Care: No Living arrangements: with family Spiritual care concerns: No Anes - Eval Final PreProcedure Day of Procedure 08/06/25 13:34 Patient weight: normal Heart: regular rate and rhythm Lungs: clear to auscultation Airway: Mallampati scale class II Neurological: alert and oriented Last oral intake: >/= 8 hours ASA classification: III Emergent: no Anesthetic plan: proceed Anesthesia type and monitoring: general ETT and standard monitoring Results Review: All pre-operative results and documents have been reviewed as part of the pre- operative evaluation. Informed Consent: The patient's anesthetic plan and its attendant risks and benefits were discussed with the patient/family/POA. Questions were solicited and answers provided to the satisfaction of the patient/family/POA.
[2025-08-06] MEDS: SCOPOLAMINE 1 MG PATCH 1 PATCH TRANSDERM (14:00)
[2025-08-06] MEDS: LACTATED RINGERS 1,000 ML 30 ML IV CONT (14:00)
[2025-08-06] MEDS: BUPIVACAINE/EPINEPHRINE 0.5% 50 ML VIAL 30 ML INFILTRATE (14:36)
--- NOTE | 2025-08-06 14:45 | S_PTH ---
PATIENT: Radha Rod LOC: [id number] U#:[id number] AGE/SX: 45/F ROOM: 327 RE08/04/[address]: Adebayo Encarnacion DO : 1980 BED: 01 DIS: 08/08/2025 SPEC #: [id number] RECD: 08/07/25 10:25 STATUS: BHAVIK REWilla #: [id number] THOMAS: 08/06/25 14:[address]: Adebayo Encarnacion DEPT: [facility] Surgical RECD BY: Mayela Nails ENTERED: 08/07/25 10:25 SP TYPE: Surgical OTHR DR: Sanket Cooney, Tissues: A - Appendix Procedures: Hematoxylin and Eosin Stain Gross and Microscopic Level 3
--- NOTE | 2025-08-06 15:18 | P.OP_ITS ---
Procedure Note - Detailed Date of Procedure 08/06/25 Pre-op Diagnosis Acute appendicitis Post-op Diagnosis Other (Acute perforated appendicitis) Procedure Performed Laparoscopic appendectomy Surgeon Adebayo Encarnacion DO Rn Oncology Research Sabino Hess DO Anesthesia General and Local (0.5% bupivacaine with epinephrine) Indications This is a 45-year-old woman who presented with lower abdominal pain shortly after having a colonoscopy on 08/04/2025. She presented to the emergency department with worsening pain and CT at that time was normal. She did have an elevated white blood count and was placed in observation for continued treatment. The following day she was still having pain but her white count had come down slightly. She then underwent repeat CT scan on 08/06/2025 and this was now showing a dilated appendix with appendicoliths and some surrounding ascites concerning for acute appendicitis. Discussions were made with the patient and decision was made to proceed with laparoscopic appendectomy, possible open. Findings Laparoscopic appendectomy was performed. Upon entering the abdomen laparoscopically, there did appear to be some purulence fluid in the pelvis and along the right pericolic gutter extending up to the right upper quadrant. The entire colon was very carefully inspected and there did not appear to be any signs of a perforation in the colon. At the cecum there did appear to be more induration and there was an area of epiploic appendage from the sigmoid colon adherent over the appendix. As I peeled this away I was able to identify the appendix and it appeared gangrenous and perforated. This appeared to be the location of the infection and perforation. The purulence fluid was suctioned free from all of the around the knee areas. The base of the appendix appeared healthy and viable. The appendix was removed and sent to the lab for pathology. The abdomen was irrigated with about 1 L of sterile saline and then a 19 round Gage drain was placed along the right pericolic recess. Description of Procedure Procedure as well as risks, benefits, and alternatives were explained to the patient. The patient agreed to proceed. Written consent was obtained and placed in chart prior to procedure. The patient was brought back to surgical suite. She was placed supine on operating table. Time-out was done to confirm the patient and procedure. The patient was then intubated by the Anesthesia Department. Her abdomen was prepped and draped in sterile fashion using chlorhexidine prep. A 12 mm incision was made at the inferior portion of the umbilicus. Blunt dissection was carried out down to the linea alba. The linea alba was then incised using a 15 blade scalpel. Then bluntly entered into the peritoneal cavity. A 12 mm trocar was then inserted, and carbon dioxide insufflation was used to create a pneumoperitoneum. The camera was inserted and the abdomen was inspected. No immediate abnormalities were identified. The patient was then placed in slight Trendelenburg position and rotated to the left. A 5 mm incision was made in the suprapubic region in midline and a 5 mm trocar was inserted under direct visualization. A 5 mm incision was made in the left lower quadrant and a 5 mm trocar was inserted under direct visualization. The right lower quadrant was carefully inspected. There appeared to be purulence fluid in the pelvis, right lower quadrant, and right upper quadrant. The colon was carefully inspected and all appeared healthy and viable. The cecum was identified and then this was traced back to the appendix. The appendix was obviously infected and appeared gangrenous and perforated. The appendix was identified and grasped at the mesoappendix and lifted anteriorly. Careful blunt dissection was carried out at the base of the appendix through the mesoappendix using a [place] grasper. An Endo-GERMAN 45 mm blue load stapler was then advanced across the base of the appendix and clamped and fired. A white reload was then clamped across the mesoappendix and fired. This freed up our appendix completely. It was then placed in an EndoCatch bag and removed through the umbilical port. The staple lines were then inspected. Hemostasis appeared adequate and the staple lines appeared secure. The area was then irrigated with sterile saline. The pelvis was then carefully inspected and irrigated with sterile saline as well and the remainder of the abdomen was carefully inspected. A 19 round Gage drain was then placed through the suprapubic port and advanced along the right pericolic gutter. This was secured in place using a 3-0 nylon drain stitch. The patient was then flattened out in bed. One final inspection was made around the abdominal cavity and no other abnormalities were seen. The ports were then removed under direct visualization. The camera was removed and the pneumoperitoneum was released. The fascia of the umbilical incision was reapproximated using an 0 Vicryl [id number] suture. 0.5% bupivacaine with epinephrine was infiltrated locally around each of the incisions. The skin of the incisions was then approximated using 4-0 Monocryl subcuticular suture and Exofin glue was applied on top. The patient was then awakened from anesthesia, extubated, and transferred to Recovery. Estimated Blood Loss 10 Drains Yes (19 round Gage) Pathology Yes (Appendix) Complications No immediate complications Condition Stable Disposition Floor [facility] Billing Surgery - Charge Forward: Surgery Billing
[2025-08-06] MEDS: HYDROcodone/acetaminophen (*CRX) 7.5-325 MG TABLET 1 TAB PO (17:46)
[2025-08-06] MEDS: SIMETHICONE 125 MG CHEW TAB PO (17:47)
[2025-08-06] MEDS: HYDROmorphone HCL INJ (*CRX) 1 MG/ML SYR IV PUSH (19:32)
[2025-08-07] MEDS: PIPERACILLIN/TAZOBACTAM SOD 3.375 GM in SODIUM CHLORIDE 0.9% IV 50 ML 100 ML IVPB ×4 (00:45→17:26)
[2025-08-07] MEDS: HYDROmorphone HCL INJ (*CRX) 1 MG/ML SYR IV PUSH ×3 (01:33→11:29)
[2025-08-07] MEDS: ONDANSETRON INJ 4 MG/2 ML VIAL IV PUSH ×2 (01:33→11:35)
[2025-08-07 01:55] VITALS: BP 118/56; PULSE 65; RESP 14; TEMP 36.9; O2SAT 98
[2025-08-07 06:34] LABS: Hematocrit 30.2 % (37.0-47.0); Hemoglobin 9.9 g/dL (12.0-15.0); Mean Corpuscular HGB Conc 32.8 g/dl (32-36); Mean Corpuscular Hemoglobin 31.2 pg (26-34); Mean Corpuscular Volume 95.3 fl (80-100); Platelet Count Result 183 k/mm3 (150-375); Red Blood Count 3.17 M/mm3 (4.2-5.4); White Blood Count 9.6 K/mm3 (4.5-10.0)
[2025-08-07 07:00] LABS: Anion Gap 6 mmol/L (4-12); Blood Urea Nitrogen 9 mg/dL (7-17); Calcium 8.4 mg/dL (8.4-10.2); Carbon Dioxide 25 mmol/L (22-30); Chloride 101 mmol/L (98-107); Estimated CRCL calculation 70 ml/min; Estimated Glomerular Filt Rate > 60; Glucose 133 mg/dL (65-110); Potassium 4.2 mmol/L (3.4-5.0); Sodium 132 mmol/L (137-145)
[2025-08-07 07:07] VITALS: BP 116/61; PULSE 69; RESP 14; TEMP 36.7; O2SAT 97
--- NOTE | 2025-08-07 07:20 | P.PNGS_ITS ---
Progress Note: A&P Assessment and Plan (1) Acute appendicitis: Qualifiers: Acute appendicitis type: with generalized peritonitis Appendicitis abscess presence: unspecified whether abscess present Appendicitis gangrene presence: unspecified whether gangrene present Appendicitis perforation presence: unspecified whether perforation present Qualified C ode(s): K35.209 - Acute appendicitis with generalized peritonitis, without abscess, unspecified as to perforation <Sabino ArturoCortney Hess, DO - Last Filed: 08/07/25 07:26> Code(s): K35.80 - Unspecified acute appendicitis <Sabino ArturoCortney Hess, DO - Last Filed: 08/07/25:> Status: Acute <Sabino Hess, DO - Last Filed: 08/07/25:> Assessment and Plan: I reviewed the CT and discussed the findings with the patient. There is now some increased size of the appendix and some surrounding reactive ascites suggesting acute appendicitis. I have recommended laparoscopic appendectomy, possible open. Will continue Zosyn IV. I discussed that I will inspect the remainder of the abdomen to rule out any other complications related to the recent colonoscopy. I discussed the risk of conversion to open and need to fix any other abnormal findings. I also discussed the options of treating appendicitis with antibiotics alone, but there is a chance of recurrence. Patient voiced her understanding and is agreeable to proceeding with surgery. -patient now pod #1 s/p laparoscopic appendectomy. Gangrenous appearing appendix intraoperatively. Preload peritonitis noted, moderate amount of reactive fluid within abdomen. Tolerated CLD. Incisions CDI. Drain with 210 cc of mostly serosanguineous output, slight tinge of purulent fluid in the drain this morning. -advance diet as tolerated -continue ABX -wean IV pain meds -DC IVF -will continue to monitor for discharge today vs tomorrow -drain to remain in place, monitor output Please see attending attestation for final plan updates <Sabino Hess DO - Last Filed: 08/07/25 07:26> (2) History of colonoscopy: Code(s): Z98.890 - Other specified postprocedural states <Sabino Hess DO - Last Filed: 08/07/25 07:26> Status: Acute <Sabino Hess, DO - Last Filed: 08/07/25 07:26> Assessment and Plan: Advance diet, monitor drain output, continue working on pain control. Hopefully home in 1-2 days. <Adebayo Encarnacion, DO - Last Filed: 08/08/25 08:48> Subjective Subjective Date/Time Seen: 08/07/25 07:20 <Sabino Hess, DO - Last Filed: 08/07/25 07:26> Interval history: NAEON. POD#1 s/p laparoscopic appendectomy. Doing well postoperatively. WBC trending down, 9.6 today. Reports that pain is incisional and different than prior pain. Incisions CDI. Approximately 210 cc out of SUKHWINDER drain overnight, small amount and pulled this morning that appeared mostly serosanguineous, still has a slight tinge of purulent appearance. Reports that she is still requiring IV pain medication for pain control. Tolerated CLD without difficulty. VSS. Afebrile <Sabino Hess, DO - Last Filed: 08/07/25 07:26> Review of Systems Review of Systems: All systems reviewed & are unremarkable except as noted in HPI and below <Sabino Hess, DO - Last Filed: 08/07/25 07:26> Exam GI: Inspection: non-distended <Sabino Hess DO - Last Filed: 08/07/25 07:26> GI Palp: Yes Soft to palpation, Yes Tenderness to palpation present (GI) and Yes Guarding due to palpation present (GI) (Near incisions, vaguely along right abdomen) <Sabino Hess DO - Last Filed: 08/07/25 07:26> Other: Incisions CDI <Sabino Hess DO - Last Filed: 08/07/25 07:26> Objective Data Vital Signs Vital Signs: Vital Signs - 24 hr 08/06/25 13:30 08/06/25 15:30 08/06/25 15:45 Temperature 99.4 F 97.6 F Pulse Rate 110 H 105 H 98 Respiratory Rate 16 17 16 Blood Pressure 112/52 L 121/61 122/66 Pulse Oximetry 100 100 100 Oxygen Delivery Room Air Simple Face Mask Simple Face Mask Oxygen Flow Rate 8 8 Fraction of Inspired Oxygen 08/06/25 15:55 08/06/25 16:00 08/06/25 16:15 Temperature 97.4 F L Pulse Rate 93 89 Respiratory Rate 15 16 Blood Pressure 117/68 116/63 Pulse Oximetry 98 97 Oxygen Delivery Room Air Room Air Room Air Oxygen Flow Rate Fraction of Inspired Oxygen 08/06/25 16:26 08/06/25 16:35 08/06/25 16:50 Temperature 98.3 F 97.7 F Pulse Rate 93 94 95 Respiratory Rate 18 18 17 Blood Pressure 120/62 113/62 118/61 Pulse Oximetry 97 98 97 Oxygen Delivery Room Air Oxygen Flow Rate Fraction of Inspired Oxygen 08/06/25 17:20 08/06/25 17:20 08/06/25 18:20 Temperature 98.3 F 97.9 F Pulse Rate 96 86 82 Respiratory Rate 17 19 Blood Pressure 117/67 121/72 Pulse Oximetry 94 99 97 Oxygen Delivery Room Air Oxygen Flow Rate Fraction of Inspired Oxygen 21 08/06/25 20:00 08/06/25 22:20 08/07/25 01:55 Temperature 97.9 F 98.4 F Pulse Rate 77 77 65 Respiratory Rate 16 16 14 Blood Pressure 129/68 118/56 L Pulse Oximetry 96 96 98 Oxygen Delivery Room Air Oxygen Flow Rate Fraction of Inspired Oxygen 21 08/07/25 07:07 Temperature 98.1 F Pulse Rate 69 Respiratory Rate 14 Blood Pressure 116/61 Pulse Oximetry 97 Oxygen Delivery Oxygen Flow Rate Fraction of Inspired Oxygen <Sabino Hess, DO - Last Filed: 08/07/25 07:26> Intake/Output Intake/Output: Intake & Output 08/04/25 08/05/25 08/06/25 08/07/25 23:59 23:59 23:59 23:59 Intake Total 1377.8 1300 440 Output Total 100 110 Balance 1377.8 1200 330 <Sabino Hess DO - Last Filed: 08/07/25 07:26> Meds/Results Medications: Active Medications Generic Name Dose Route Start Last Admin Trade Name Freq PRN Reason Stop Dose Admin Acetaminophen 650 mg 08/04/25 18:34 08/05/25 01:46 Acetaminophen 325 Mg Tablet PO 650 mg Q4H PRN Administration Mild Pain (1-3) or Fever Hydrocodone Bitart/Acetaminophen 1 tab 08/06/25 16:35 Hydrocodone/Acetaminophen (*Crx) 5-325 Mg Tablet PO Q4H PRN Pain Rated 4-6 Hydrocodone Bitart/Acetaminophen 1 tab 08/06/25 16:35 08/06/25 17:46 Hydrocodone/Acetaminophen (*Crx) 7.5-325 Mg Tablet PO 1 tab Q4H PRN Administration Pain Rated 7-10 Dicyclomine HCl 20 mg 08/05/25 09:43 08/05/25 16:30 Dicyclomine Hcl 10 Mg Capsule PO 20 mg QID PRN Administration Abdominal Cramping Diphenhydramine HCl 25 mg 08/06/25 16:35 Diphenhydramine Hcl Inj 50 Mg/Ml Vial IV PUSH Q6H PRN Itching Enoxaparin Sodium 40 mg 08/07/25 09:00 Enoxaparin 40 Mg/0.4 Ml Syringe SUB-Q DAILY MICHAEL Hydromorphone HCl 1 mg 08/06/25 16:35 08/07/25 06:45 Hydromorphone Hcl Inj (*Crx) 1 Mg/Ml Syr IV PUSH 1 mg Q2H PRN Administration Breakthrough Pain Rated 7-10 or NPO Hydromorphone HCl 0.5 mg 08/06/25 16:35 Hydromorphone Hcl Inj (*Crx) 1 Mg/Ml Syr IV PUSH Q2H PRN Breakthrough Pain Rated 4-6 or NPO Piperacillin Sod/Tazobactam 50 mls @ 100 mls/hr 08/06/25 11:35 08/07/25 06:34 Sod 3.375 gm/ Sodium Chloride IVPB 100 mls/hr Q6HR MICHAEL Administration Ibuprofen 800 mg in 200 mls @ 400 mls/hr 08/06/25 16:35 Caldolor 800 Mg/200 Ml IVPB Q6H PRN Breakthrough Pain Rated 1-3 or NPO Naloxone HCl 0.1 mg 08/06/25 16:35 Naloxone Hcl 0.4 Mg/Ml Vial IV PUSH Q2M PRN Opiate Reversal Ondansetron HCl 4 mg 08/04/25 18:34 08/07/25 01:33 Ondansetron Inj 4 Mg/2 Ml Vial IV PUSH 4 mg Q4H PRN Administration Nausea Ondansetron HCl 4 mg 08/06/25 16:35 Ondansetron Inj 4 Mg/2 Ml Vial IV PUSH Q4H PRN Nausea And Vomiting Simethicone 125 mg 08/05/25 13:00 08/06/25 22:15 Simethicone 125 Mg Chew Tab PO Not Given QID MICHAEL Spironolactone 100 mg 08/04/25 21:45 08/06/25 22:15 Spironolactone 50 Mg Tablet PO Not Given HS MICHAEL <Sabino Hess, DO - Last Filed: 08/07/25 07:26> Radiology Results: ITS Impressions Abdomen/Pelvis CT 08/06/25 10:30 IMPRESSION: 1. Appendicoliths and worsened dilatation of the appendix, consistent with appendicitis. 2. Worsened small volume of ascites. <Sabino Hess, DO - Last Filed: 08/07/25 07:26> Labs Labs: Laboratory Results - last 24 hr 08/07/25 05:56 WBC 9.6 RBC 3.17 L Hgb 9.9 L Hct 30.2 L MCV 95.3 MCH 31.2 MCHC 32.8 RDW 12.2 Plt Count 183 MPV 10.2 Sodium 132 L Potassium 4.2 Chloride 101 Carbon Dioxide 25 Anion Gap 6 BUN 9 Creatinine 0.65 L Estim Creat Clear Calc 70 Estimated GFR > 60 Glucose 133 H Calcium 8.4 <Sabino Hess, DO - Last Filed: 08/07/25 07:26>
[2025-08-07] MEDS: SIMETHICONE 125 MG CHEW TAB PO ×4 (08:47→20:29)
[2025-08-07] MEDS: ENOXAPARIN 40 MG/0.4 ML SYRINGE SUB-Q (08:47)
[2025-08-07 10:20] VITALS: BP 117/67; PULSE 61; RESP 18; TEMP 37.1; O2SAT 100
--- NOTE | 2025-08-07 10:21 | SUR.OPER ---
Late entry-specimen order (appendix)
[2025-08-07] MEDS: IBUPROFEN IV 800 MG/200 ML 800 MG/200 ML BAG 400 MG IVPB (14:06)
[2025-08-07 14:17] VITALS: BP 106/63; PULSE 79; RESP 18; TEMP 36.8; O2SAT 100
--- NOTE | 2025-08-07 14:32 | WPDANESPN ---
Anes - Prog Note Post-Op Date/Time: 08/07/25 14:32 Cardiovascular status: normal Respiratory status: normal Airway patency: baseline Mental status: baseline Vital Signs: Last Vital Signs Temp 36.8 C 08/07/25 14:17 Pulse 79 08/07/25 14:17 Resp 18 08/07/25 14:17 BP 106/63 08/07/25 14:17 Pulse Ox 100 08/07/25 14:17 O2 Del Method Room Air 08/06/25 20:00 O2 Flow Rate 8 08/06/25 15:45 FiO2 21 08/06/25 20:00 Pain Score (VAS): 3 I/O: Intake & Output 08/06/25 08/07/25 08/07/25 23:59 07:59 15:59 Intake Total 250 490 342 Output Total 100 110 Balance 150 380 342 Laboratory Tests 08/07/25 05:56 08/07/25 05:56 08/07/25 05:56 WBC 9.6 RBC 3.17 L Hgb 9.9 L Hct 30.2 L MCV 95.3 MCH 31.2 MCHC 32.8 RDW 12.2 Plt Count 183 MPV 10.2 Sodium 132 L Potassium 4.2 Chloride 101 Carbon Dioxide 25 Anion Gap 6 BUN 9 Creatinine 0.65 L Estim Creat Clear Calc 70 Estimated GFR > 60 Glucose 133 H Calcium 8.4 Patient Feedback: Patient satisfied with anesthetic care.
[2025-08-07 18:13] VITALS: BP 116/51; PULSE 106; RESP 17; TEMP 36.7; O2SAT 100
[2025-08-07 22:00] VITALS: BP 109/52; PULSE 64; RESP 20; TEMP 36.5; O2SAT 99
[2025-08-08] MEDS: HYDROcodone/acetaminophen (*CRX) 7.5-325 MG TABLET 1 TAB PO (00:11)
[2025-08-08] MEDS: PIPERACILLIN/TAZOBACTAM SOD 3.375 GM in SODIUM CHLORIDE 0.9% IV 50 ML 100 ML IVPB ×3 (00:12→12:25)
[2025-08-08] MEDS: ONDANSETRON INJ 4 MG/2 ML VIAL IV PUSH ×2 (00:45→05:30)
[2025-08-08] MEDS: HYDROmorphone HCL INJ (*CRX) 1 MG/ML SYR 0.5 MG IV PUSH (05:30)
[2025-08-08 06:19] VITALS: BP 113/59; PULSE 64; RESP 18; TEMP 36.6; O2SAT 98
[2025-08-08 06:42] LABS: Hematocrit 30.3 % (37.0-47.0); Hemoglobin 9.8 g/dL (12.0-15.0); Mean Corpuscular HGB Conc 32.3 g/dl (32-36); Mean Corpuscular Hemoglobin 31.3 pg (26-34); Mean Corpuscular Volume 96.8 fl (80-100); Platelet Count Result 214 k/mm3 (150-375); Red Blood Count 3.13 M/mm3 (4.2-5.4); White Blood Count 7.8 K/mm3 (4.5-10.0)
[2025-08-08 07:03] LABS: Anion Gap 6 mmol/L (4-12); Blood Urea Nitrogen 13 mg/dL (7-17); Calcium 8.5 mg/dL (8.4-10.2); Carbon Dioxide 28 mmol/L (22-30); Chloride 100 mmol/L (98-107); Estimated CRCL calculation 60 ml/min; Estimated Glomerular Filt Rate > 60; Glucose 99 mg/dL (65-110); Potassium 3.3 mmol/L (3.4-5.0); Sodium 134 mmol/L (137-145)
--- NOTE | 2025-08-08 08:42 | PM.PNGS ---
Progress Note: A&P Assessment and Plan (1) Acute appendicitis: Qualifiers: Acute appendicitis type: with generalized peritonitis Appendicitis abscess presence: unspecified whether abscess present Appendicitis gangrene presence: unspecified whether gangrene present Appendicitis perforation presence: unspecified whether perforation present Qualified Code(s): K35.209 - Acute appendicitis with generalized peritonitis, without abscess, unspecified as to perforation Code(s): K35.80 - Unspecified acute appendicitis Status: Acute Assessment and Plan: I reviewed the CT and discussed the findings with the patient. There is now some increased size of the appendix and some surrounding reactive ascites suggesting acute appendicitis. I have recommended laparoscopic appendectomy, possible open. Will continue Zosyn IV. I discussed that I will inspect the remainder of the abdomen to rule out any other complications related to the recent colonoscopy. I discussed the risk of conversion to open and need to fix any other abnormal findings. I also discussed the options of treating appendicitis with antibiotics alone, but there is a chance of recurrence. Patient voiced her understanding and is agreeable to proceeding with surgery. -patient now pod #2 s/p laparoscopic appendectomy. Gangrenous appearing appendix intraoperatively. Purulent peritonitis noted intraoperatively, moderate amount of reactive fluid within abdomen. Tolerated regular diet. Incisions CDI. Drain with 120 cc of serosanguineous output, no further purulent appearing fluid in drain this morning. -diet as tolerated -continue ABX -wean IV pain meds -will continue to monitor for discharge, patient's primary barrier to discharge at this time is pain control, will see if pain improves with removal of drain -remove drain Please see attending attestation for final plan updates (2) History of colonoscopy: Code(s): Z98.890 - Other specified postprocedural states Status: Acute Subjective Subjective Date/Time Seen: 08/08/25 08:42 Interval history: NAEON. Tolerated regular diet. States that she has not much bowel function, however this is normal for her. Reports pain along the right side of her abdomen, she reports increased pain with drain stripping yesterday. Drain is serosanguineous this morning. Incisions CDI. Review of Systems Review of Systems: All systems reviewed & are unremarkable except as noted in HPI and below Exam Narrative: General: Awake, alert, no acute distress HEENT: NC/AT, EOMI, mucous membranes pink and moist Neck: No masses or swelling, no JVD Heart: Regular rate, HDS Lungs: Symmetric expansion, no IWOB, on RA Abdomen: Soft, TTP near incisions, slightly along the right abdomen, nondistended, non peritoneal, drain with serosanguineous output Objective Data Vital Signs Vital Signs: Vital Signs - 24 hr 08/07/25 10:20 08/07/25 14:17 08/07/25 18:13 Temperature 98.8 F 98.2 F 98.1 F Pulse Rate 61 79 106 H Respiratory Rate 18 18 17 Blood Pressure 117/67 106/63 116/51 L Pulse Oximetry 100 100 100 08/07/25 22:00 08/08/25 06:19 Temperature 97.7 F 97.9 F Pulse Rate 64 64 Respiratory Rate 20 18 Blood Pressure 109/52 L 113/59 L Pulse Oximetry 99 98 Intake/Output Intake/Output: Intake & Output 08/05/25 08/06/25 08/07/25 08/08/25 23:59 23:59 23:59 23:59 Intake Total 1377.8 1300 3204 590 Output Total 100 160 70 Balance 1377.8 1200 3044 520 Meds/Results Medications: Active Medications Generic Name Dose Route Start Last Admin Trade Name Freq PRN Reason Stop Dose Admin Acetaminophen 650 mg 08/04/25 18:34 08/05/25 01:46 Acetaminophen 325 Mg Tablet PO 650 mg Q4H PRN Administration Mild Pain (1-3) or Fever Hydrocodone Bitart/Acetaminophen 1 tab 08/06/25 16:35 Hydrocodone/Acetaminophen (*Crx) 5-325 Mg Tablet PO Q4H PRN Pain Rated 4-6 Hydrocodone Bitart/Acetaminophen 1 tab 08/06/25 16:35 08/08/25 00:11 Hydrocodone/Acetaminophen (*Crx) 7.5-325 Mg Tablet PO 1 tab Q4H PRN Administration Pain Rated 7-10 Dicyclomine HCl 20 mg 08/05/25 09:43 08/05/25 16:30 Dicyclomine Hcl 10 Mg Capsule PO 20 mg QID PRN Administration Abdominal Cramping Diphenhydramine HCl 25 mg 08/06/25 16:35 08/07/25 20:19 Diphenhydramine Hcl Inj 50 Mg/Ml Vial IV PUSH 25 mg Q6H PRN Administration Itching Enoxaparin Sodium 40 mg 08/07/25 09:00 08/07/25 08:47 Enoxaparin 40 Mg/0.4 Ml Syringe SUB-Q 40 mg DAILY MICHAEL Administration Fluconazole 150 mg 08/08/25 09:00 Fluconazole 150 Mg Tablet PO 08/08/25 09:01 ONCE ONE Hydromorphone HCl 1 mg 08/06/25 16:35 08/07/25 11:29 Hydromorphone Hcl Inj (*Crx) 1 Mg/Ml Syr IV PUSH 1 mg Q2H PRN Administration Breakthrough Pain Rated 7-10 or NPO Hydromorphone HCl 0.5 mg 08/06/25 16:35 08/08/25 05:30 Hydromorphone Hcl Inj (*Crx) 1 Mg/Ml Syr IV PUSH 0.5 mg Q2H PRN Administration Breakthrough Pain Rated 4-6 or NPO Piperacillin Sod/Tazobactam 50 mls @ 100 mls/hr 08/06/25 11:35 08/08/25 05:29 Sod 3.375 gm/ Sodium Chloride IVPB 100 mls/hr Q6HR MICHAEL Administration Naloxone HCl 0.1 mg 08/06/25 16:35 Naloxone Hcl 0.4 Mg/Ml Vial IV PUSH Q2M PRN Opiate Reversal Ondansetron HCl 4 mg 08/04/25 18:34 08/08/25 00:45 Ondansetron Inj 4 Mg/2 Ml Vial IV PUSH 4 mg Q4H PRN Administration Nausea Ondansetron HCl 4 mg 08/06/25 16:35 08/08/25 05:30 Ondansetron Inj 4 Mg/2 Ml Vial IV PUSH 4 mg Q4H PRN Administration Nausea And Vomiting Simethicone 125 mg 08/05/25 13:00 08/07/25 20:29 Simethicone 125 Mg Chew Tab PO 125 mg QID [facility] Administration Spironolactone 100 mg 08/04/25 21:45 08/07/25 20:29 Spironolactone 50 Mg Tablet PO Not Given HS [facility] Radiology Results: ITS Impressions Abdomen/Pelvis CT 08/06/25 10:30 IMPRESSION: 1. Appendicoliths and worsened dilatation of the appendix, consistent with appendicitis. 2. Worsened small volume of ascites. Labs Labs: Laboratory Results - last 24 hr 08/08/25 06:12 WBC 7.8 RBC 3.13 L Hgb 9.8 L Hct 30.3 L MCV 96.8 MCH 31.3 MCHC 32.3 RDW 12.2 Plt Count 214 MPV 10.3 Sodium 134 L Potassium 3.3 L Chloride 100 Carbon Dioxide 28 Anion Gap 6 BUN 13 Creatinine 0.77 Estim Creat Clear Calc 60 Estimated GFR > 60 Glucose 99 Calcium 8.5
[2025-08-08] MEDS: FLUCONAZOLE 150 MG TABLET PO (09:21)
[2025-08-08] MEDS: SIMETHICONE 125 MG CHEW TAB PO ×2 (09:22→12:25)
[2025-08-08] MEDS: ENOXAPARIN 40 MG/0.4 ML SYRINGE SUB-Q (09:22)
[2025-08-08 10:24] VITALS: BP 112/56; PULSE 65; RESP 16; TEMP 36.1; O2SAT 98
--- NOTE | 2025-08-08 12:05 | P.DS_ITS ---
DS: Admitting Diagnosis Discharge Date 08/08/2025 Admitting Diagnosis Lower abdominal pain after colonoscopy DS: Discharge Diagnosis Discharge Diagnosis (1) Acute appendicitis: Qualifiers: Acute appendicitis type: with generalized peritonitis Appendicitis gangrene presence: with gangrene Appendicitis perforation presence: with perforation Appendicitis abscess presence: unspecified whether abscess present Qualified Code(s): K35.201 - Acute appendicitis with generalized peritonitis, with perforation, without abscess Code(s): K35.80 - Unspecified acute appendicitis Status: Acute DS: Summary Hospital Course Reason for hospitalization: Lower abdominal pain after colonoscopy Hospital Course: This is a 45-year-old woman who had undergone screening colonoscopy on 08/04/2025. Procedure was uncomplicated and patient was discharged home afterwards. About 1 hour after coming home she began experiencing diffuse lower abdominal pain. She presented to the emergency department and was found to have evidence of leukocytosis but CT of her abdomen and pelvis appeared normal. She was continued to have fairly severe pain and therefore was admitted for observation and further workup. On 08/05/2025 her white count had come down slightly and she was tolerating clear liquid diet but was still experiencing the same lower abdominal pain. A repeat CT abdomen/pelvis was done on 08/06/2025 and this showed evidence of appendicitis and some surrounding fluid. There was no sign of free air. She was started on Zosyn. She was then taken for laparoscopic appendectomy 08/06/2025. She was found to have perforated appendicitis with generalized peritonitis. Surgery was uncomplicated and SUKHWINDER drain was placed at the time of surgery. She was started on clear liquid diet and gradually advanced as tolerated. On postop day 1 her white blood count was now normal and she was tolerating a regular diet. She was still experiencing significant pain along the right lateral abdomen which appeared to coincide with where the drain was placed. The drain output appeared serosanguineous. On postop day 2 the drain was removed and her pain was improving. She was tolerating a regular diet and passing flatus. She was remaining hemodynamically stable with no fevers. She was discharged on 08/08/2025. Pathology showed acute appendicitis with perforation. Status at Discharge Functional status at discharge: independent ambulation Overall status at discharge: patient is progressing back to baseline Time Spent with Patient Time attestation: Total time spent providing and/or coordinating discharge services: Time spent: Less than 30 minutes Exam Const: General: comfortable and no acute distress Orientation/consciousness: patient oriented x3 Resp: Effort & Inspection: normal respiratory effort Auscultation: clear to auscultation bilaterally Cardio: Rate: regular rate Rhythm: regular rhythm GI: Inspection: non-distended and incision (Intact with glue) GI Palp: Yes Tenderness to palpation present (GI) (Incisional) Auscultation: normal bowel sounds DS: Data Data Completed and Pending Completed studies during hospitalization: Pending at discharge 08/06/25 14:45 Surgical [PTH] Routine Final Diagnosis Appendix, appendectomy: - Acute appendicitis with microscopic rupture Reviewed and Electronically Signed by: Edward Kim MD 08/08/25 1030 Labs on day of discharge: Labs from last 24 hours 08/08/25 06:12 WBC 7.8 RBC 3.13 L Hgb 9.8 L Hct 30.3 L MCV 96.8 MCH 31.3 MCHC 32.3 RDW 12.2 Plt Count 214 MPV 10.3 Sodium 134 L Potassium 3.3 L Chloride 100 Carbon Dioxide 28 Anion Gap 6 BUN 13 Creatinine 0.77 Estim Creat Clear Calc 60 Estimated GFR > 60 Glucose 99 Calcium 8.5 Imaging Radiologist's impression: ITS Impressions Abdomen/Pelvis CT 08/04/25 17:09 IMPRESSION: No acute abnormality is noted in the abdomen and pelvis. All CT scans at this facility are performed using low dose modulation techniques as appropriate to perform exam including the following: automated exposure control; use of iterative reconstruction technique; adjustment of the mA and/or kV according to patient size (this includes techniques or standardized protocols for targeted exams where dose is matched to indication/reason for exam). Abdomen/Pelvis CT 08/06/25 10:30 IMPRESSION: 1. Appendicoliths and worsened dilatation of the appendix, consistent with appendicitis. 2. Worsened small volume of ascites. Discharge Plan Discharge Attending physician on discharge: Adebayo Bower Discharging Clinician: Adebayo Bower Patient Disposition: Home Activity: other - see discharge instructions Diet: regular Wound Care Instructions: other - see discharge instructions Discharge Instructions: DISCHARGE INSTRUCTION SHEET FOR HERNIA, GALLBLADDER AND APPENDIX SURGERIES DR. BOWER PATIENT TO TAKE HOME 1. May shower in 24 hours, no soaking in bath x 2weeks. 2. Call office for: * Wound increasingly painful or bleeding * Vomiting * Fever of greater than 101 degrees 3. If no bowel movement for three days, take 1 oz. (30 ml) Milk of Magnesia or MiraLax 17g 1 to 2 times daily. 4. No heavy lifting > 10-15 pounds x 2 weeks for laparoscopic cholecystectomy or appendectomy. 5. No driving for 3 days or while taking narcotic pain medications. 6. Ice to surgical site for 48 hours (30 min on, then 30 min off). 7. Up walking 10-30 minutes three times per day. 8. Resume previous home medications. 9. Follow-up 10-14 days in office for wound check or as previously scheduled. ([phone]) 10. Oral pain medications prescription to be sent to pharmacy. Take Tylenol 500mg every 6 hours and Ibuprofen 600mg every 6 hours for the first 2 days, then as needed. 11. NUTRITION: Start out by drinking fluids and increase your diet as tolerated. If you experience nausea, try dry toast, crackers, and 7-UP. If nausea or vomiting persists, contact your surgeon?s office. Revised January 2019 Patient Instructions: Antibiotic Form Patient Language: Georgian Stand Alone Forms: General Discharge Information Follow-up/Referrals: Adebayo Bower, [Physician, General Surgery] - 2 Weeks Discharge Medications: New hydrocodone-acetaminophen 5-325 mg tablet 1 - 2 tablet PO Q4H PRN (Reason: pain) Qty: 15 0RF amoxicillin-pot clavulanate 875-125 mg tablet 1 tablet PO Q12H 10 Days Qty: 20 0RF metronidazole 500 mg tablet 500 mg PO Q8H 10 Days Qty: 30 0RF Continued spironolactone 100 mg tablet 100 mg PO HS Rx Instructions: For Acne magnesium 200 mg Tablet 400 mg PO HS Date of admission: 08/08/25 08:39 Primary Care Provider: Ivet,Sanket Salazar Admitting Provider: Adebayo Bower Attending physician on admission: Adebayo Bower Condition: Improved
[2025-08-08] MEDS: HYDROcodone/acetaminophen (*CRX) 5-325 MG TABLET 1 TAB PO (13:15)
== END 2025-08-08 15:05 | disposition home or self-care (01) ==
LOC: ANHED 18:43 → ANH3MEDSUR 19:28
PROVIDERS: Nurse Practitioner Family; Admitting Provider Surgery; Emergency Provider Physician Assistant; PCP Family Medicine; Visit Provider Surgery
PROC: 0DTJ4ZZ Resection of Appendix, Percutaneous Endoscopic Approach (ICD-10-PCS; CPT 44970; principal; 2025-08-06 14:00)
DX: K35.201 Acute appendicitis with generalized peritonitis, with perforation, without abscess (principal); Z98.890 Other specified postprocedural states; D72.829 Elevated white blood cell count, unspecified; N83.201 Unspecified ovarian cyst, right side; D64.9 Anemia, unspecified; Z80.9 Family history of malignant neoplasm, unspecified
CPT/HCPCS: 44970; 36415; 74177; 80048; 80053; 81001; 83605; 85025; 85027; 88304; 96374; 96375; 96376; 99285; A9270; G0378; J1100; J1171; J1200; J1650; J1741; J2003; J2250; J2270; J2405; J2543; J2704; J3010; J7030; J7120; Q9967